=== PATIENT | female | born 1950 | race Caucasian/White ===

== ENCOUNTER 2018-06-18 06:55 | Outpatient (CLI) | payer BC, SELFPAY ==
--- NOTE | 2018-06-18 11:45 | DI.RAD_ITS ---
SYMPTOMS/DIAGNOSIS: BACK PAIN, DORSALGIA, M54.9 LUMBAR SPINE: AP, lateral and bilateral oblique views were obtained. There are no priors for comparison. There is a compression deformity of the superior endplate of L3. There is loss of approximately 15% of the height of the vertebral body. There is a mild compression deformity of the superior endplate of L4 with minimal loss of height of the vertebral body noted. There are five lumbar-type vertebral bodies. No spondylolysis or spondylolisthesis is seen. There is disc space narrowing at L3-4 and L4-L5. Endplate osteophytes are seen from L2-3 through L4-L5. There are degenerative changes of the facet seen in the lower lumbar spine. Surgical clips are seen in the right upper quadrant of the abdomen. IMPRESSION: 1. Superior endplate deformities of L3 and L4. They are indeterminate in age. 2. Moderate degenerative changes in the lumbar spine.
[2018-06-18 12:44] LABS: Bilirubin Negative (Negative); Blood Negative (Negative); Clarity Clear; Glucose Negative (Negative); Ketones Negative (Negative); Leukocyte Esterase Negative (Negative); Nitrite Negative (Negative)
[2018-06-18 12:49] LABS: HCT 41.8 % (36.0-46.0); HGB 15.2 g/dL (12.0-15.5); Mean Corp. HGB Concentration 36.4 g/dL (32.0-36.0); Mean Corpuscular Hemoglobin 33.6 pg (27.0-33.0); Mean Corpuscular Volume 92.3 fL (80-95); Mean Platelet Volume 11.2 fL (8.0-11.0); RBC 4.53 m/cumm (4.00-5.20); RBC Distribution Width 12.4 % (11.7-14.6); White Blood Cell Count 12.87 k/cumm (4.4-10.8)
[2018-06-18 13:38] LABS: ALT 52 U/L (12-78); AST 33 U/L (15-37); Albumin 4.4 g/dL (3.4-5.0); Alkaline Phosphatase 77 U/L (46-116); Anion Gap 8.9 mmol/L (3-11); BUN 18 mg/dL (7-18); C-Reactive Protein 0.92 mg/dL (0.0-0.3); CO2 28.1 mmol/L (21.0-32.0); Calcium 9.4 mg/dL (8.5-10.1); Chloride 102 mmol/L (98-107); Glucose 77 mg/dL (70-100); Potassium 4.2 mmol/L (3.5-5.1); Sodium 139 mmol/L (136-145); Total Protein 7.6 g/dL (6.4-8.2)
[2018-06-18 13:56] LABS: Platelet Count 162 x1000/uL (130-400)
[2018-06-18 14:01] LABS: Absolute Eosinophil Count 0.13 k/cumm (0.0-0.7); Absolute Lymphocyte Count 4.89 k/cumm (1.2-3.4); Absolute Monocyte Count 4.63 k/cumm (0.11-0.7); Absolute Neutrophil Count 3.22 k/cumm (1.2-6.7); Atypical Lymphocytes % 19
[2018-06-18 14:02] LABS: Howell-Jolly Bodies Present; Microcytosis 1+; Spherocytes 1+
[2018-06-18 14:03] LABS: Diff Comment Manual Differential
== END 2018-06-18 07:15 ==
PROVIDERS: PCP Family Medicine; Visit Provider Family Medicine
DX: Z00.00 Encounter for general adult medical examination without abnormal findings (principal); R39.11 Hesitancy of micturition; M54.5 Low back pain; M48.56XD Collapsed vertebra, not elsewhere classified, lumbar region, subsequent encounter for fracture with routine healing; M47.817 Spondylosis without myelopathy or radiculopathy, lumbosacral region
CPT/HCPCS: 36415; 80053; 72110; 81003; 85025; 86140

== ENCOUNTER 2018-07-01 01:48 | Outpatient (CLI) | payer BC, SELFPAY ==
--- NOTE | 2018-07-01 15:56 | DI.DEXA_ITS ---
SYMPTOM/DIAGNOSIS: COMPRESSION FX, SCREENING FOR OSTEOPOROSIS IN POSTMENOPAUSAL WOMAN, Z78.0 DEXA SCAN: The scanogram is unremarkable save for a small superior endplate compression fracture involving L 3. For the left hip, a T score of -0.7 and a Z score of 0.6 indicate osteopenia and an increased fracture risk. For the lumbar spine, a T score of 0.5 and a Z score of 2.3 are within the normal range. For the left forearm, a T score of - 1.3 and a Z score of 0.4 are within the normal range.
== END 2018-07-01 02:08 ==
PROVIDERS: PCP Family Medicine; Visit Provider Family Medicine
DX: M85.88 Other specified disorders of bone density and structure, other site (principal); Z78.0 Asymptomatic menopausal state
CPT/HCPCS: 77080

== ENCOUNTER 2018-07-07 00:58 | Outpatient (CLI) | payer BC, SELFPAY ==
--- NOTE | 2018-07-07 13:52 | DI.CT_ITS ---
SYMPTOMS/DIAGNOSIS: INCREASING LOW BACK PAIN AND HIP PAIN S/P FALL 5 WEEKS AGO, M54.5 CT SCAN OF THE LUMBAR SPINE: Multiple contiguous axial images of the lumbar spine were obtained. Sagittal and coronal reformatted images were evaluated on the Siemens workstation. There is a subacute compression fracture of the superior endplate of L2 with loss of less than 10% of the height of the vertebral body. There is a subacute fracture of the superior endplate of L3 with loss of approximately 15-20% of the height of the vertebral body noted. There is a compression fracture involving the superior endplate of L4 on the left. No significant retropulsion is seen to cause central spinal canal stenosis. There are endplate osteophytes at all levels of the lumbar spine with sparing of the L5-S1 disc space. There is mild narrowing of the L3-L4 disc space and marked narrowing of the L4-L5 disc space. Vacuum discs are seen at L3-L4 and L4-L5. Degenerative changes of the facets are seen in the lumbar spine, particularly from L3-4 through L5-S1. IMPRESSION: 1. Subacute fractures involving the superior endplates of L2, L3 and L4, as described above. 2. Moderate degenerative changes seen in the lumbar spine. CT SCAN OF THE PELVIS: Multiple contiguous axial images of the pelvis, sacrum and coccyx were obtained. Sagittal and coronal reformatted images were evaluated on the Siemens workstation. No fracture or dislocation is seen. The sacroiliac joints appear intact, as does the symphysis pubis. Degenerative changes are seen in the lower lumbar spine. The soft tissues show no acute abnormality. IMPRESSION: No acute fracture or subluxation.
== END 2018-07-07 01:18 ==
PROVIDERS: PCP Family Medicine; Visit Provider Family Medicine
DX: M54.5 Low back pain (principal); M25.559 Pain in unspecified hip; M47.816 Spondylosis without myelopathy or radiculopathy, lumbar region; M48.56XD Collapsed vertebra, not elsewhere classified, lumbar region, subsequent encounter for fracture with routine healing; M48.061 Spinal stenosis, lumbar region without neurogenic claudication
CPT/HCPCS: 72131; 72192

== ENCOUNTER 2018-10-23 11:10 | Outpatient (CLI) | payer BC, SELFPAY ==
[2018-10-23 14:25] LABS: HCT 39.4 % (36.0-46.0); HGB 14.2 g/dL (12.0-15.5); Mean Corpuscular Hemoglobin 33.8 pg (27.0-33.0); Mean Corpuscular Volume 93.8 fL (80-95); Mean Platelet Volume 11.2 fL (8.0-11.0); Platelet Count 169 x1000/uL (130-400); RBC Distribution Width 12.2 % (11.7-14.6); White Blood Cell Count 5.88 k/cumm (4.4-10.8)
[2018-10-23 15:21] LABS: Absolute Eosinophil Count 0.12 k/cumm (0.0-0.7); Absolute Lymphocyte Count 3.29 k/cumm (1.2-3.4); Absolute Monocyte Count 1.18 k/cumm (0.11-0.7); Absolute Neutrophil Count 1.29 k/cumm (1.2-6.7); Atypical Lymphocytes % 27; Diff Comment Manual Differential; Nucleated RBC 1 /100WBC
[2018-10-23 15:23] LABS: Howell-Jolly Bodies Present
[2018-10-23 15:33] LABS: ALT 60 U/L (12-78); AST 38 U/L (15-37); Albumin 4.3 g/dL (3.4-5.0); Alkaline Phosphatase 47 U/L (46-116); Anion Gap 8.8 mmol/L (3-11); BUN 17 mg/dL (7-18); Bilirubin, Total 1.5 mg/dL (0.2-1.0); CO2 26.2 mmol/L (21.0-32.0); CREATININE 0.66 mg/dL (0.55-1.02); Calcium 9.5 mg/dL (8.5-10.1); Chloride 105 mmol/L (98-107); Glucose 92 mg/dL (70-100); Potassium 4.2 mmol/L (3.5-5.1); Sodium 140 mmol/L (136-145); Total Protein 7.2 g/dL (6.4-8.2)
[2018-10-24 13:25] LABS: Total Protein 6.8 g/dl (6.3-8.2)
== END 2018-10-23 11:30 ==
PROVIDERS: PCP Family Medicine; Visit Provider Family Medicine
DX: M54.5 Low back pain (principal)
CPT/HCPCS: 36415; 80053; 84165; 85025

== ENCOUNTER 2019-12-10 02:21 | Outpatient (CLI) | payer MEDICARE, SELFPAY ==
--- NOTE | 2019-12-10 11:55 | DI.MAMMO_ITS ---
EXAM: MAMMO SCREENING CLINICAL HISTORY: screening,z12.39 TECHNIQUE: Mammograms were interpreted according to the usual protocol including computer analysis w [employer] CAD system, tomosynthesis and C-view imaging. COMPARISON: 2010 through 2017 FINDINGS: The breasts are composed of mainly fatty density , Breast Density category A. No suspicious masses or suspicious microcalcifications are seen. No skin thickening or abnormal axillary lymph nodes are seen. There has been no significant change from prior exams. IMPRESSION: BI-RADS Category 1, Negative mammogram Yearly screening mammography is recommended. Breast Density - Category A, fatty density. A negative radiographic report should not delay biopsy if a dominant or clinically suspicious mass is present. Up to ten percent of cancers are not identified on mammography. A negative report may reinforce clinical impression. Adenosis and dense breasts may obscure an underlying neoplasm. False positive reports average 6 to 10%. Patient will receive a letter notifying them of these results.
== END 2019-12-10 02:41 ==
PROVIDERS: PCP Family Medicine; Visit Provider Family Medicine
DX: Z12.31 Encounter for screening mammogram for malignant neoplasm of breast (principal)
CPT/HCPCS: 77063; 77067

== ENCOUNTER → 2019-12-31 09:05 | Outpatient (BNVA) | payer MEDICARE, SELFPAY | PROVIDERS: PCP Family Medicine; Referring Provider Family Medicine; Visit Provider Physical Therapy Assistant | DX: Z12.11 Encounter for screening for malignant neoplasm of colon (principal) ==

== ENCOUNTER 2020-01-25 07:12 | Day surgery (SDC) | payer MEDICARE, SELFPAY ==
--- NOTE | 2020-01-25 06:51 | COLE_ITS ---
Date of service: 01/25/20 Time of Service: 08:14 Colonoscopy Report Date of procedure: 01/25/20 Pre-op diagnosis general: colon cancer Screening Post-op diagnosis procedure note: other (diverticulosis and polyps) Procedure: Colonoscopy with polypectomy Surgeon: Gaby Dillard Anesthesia proc note operative: other (General/ASA 2/Roger Finley CRNA) Estimated blood loss (mL): 3 Pathology: other (Hepatic flexure polyp and sigmoid polyp) Complications: None Disposition: same day Indications: The patient is here for Colonoscopy pre-op. Her last screening was in 2009 and was unremarkable. She has no family history of colon cancer. She has not had any bowel habit changes. -Discussed colonoscopy bowel prep as well as the procedure. Discussed possible complications of the procedure to include bleeding, pain, perforation, missed small lesion/polyp, sore throat, aspiration and adverse reaction to the medications. Questions were answered to patient?s satisfaction. No guarantees were implied or given. Prep: Miralax/Dulcolax Procedure Start Time: 08:14 Procedure End Time: 08:35 Retraction Time: 14 minutes Findings: one sessile polyp and one pedunculated polyp. Pandiverticulosis Procedure Description: After informed consent was obtained the patient was taken to the procedure room and placed in a left decubitous position. Monitors were applied and a time out was done. The patients name, date of , procedure, allergies to medications and metal in their body was reviewed. The patient was then sedated. Once sedated and comfortable a rectal exam was done. External exam was normal. Internal exam revealed a normal sphincter tone and no palpable masses. The scope was then introduced and retro-flexed. No internal hemorrhoids, masses or polyps were identified on retroflexion. The scope was then advanced to the cecum without difficulty. The ileocecal valve and appendiceal orifice were identified. The prep was good. The scope was then slowly retracted over 14 minutes back into the rectum. Polyps were removed with forceps at the Hepatic Flexure and with a snare in the sigmoid colon. There was moderate case- diverticulosis noted as well. The scope was removed and the patient was woken up and taken back to Same day surgery in stable condition. The patient tolerated the procedure well and there were no immediate complications. Follow up: The patient should follow up in 5 years unless they develop changes in bowel habits or other new gastrointestinal complaints.
--- NOTE | 2020-01-25 06:52 | W.PM.DSUDISC ---
Discharge Plan Disposition Patient Disposition: HOME Condition: Good Discharge Details Reason For Visit: Colonoscopy Attending Provider: Gaby Dillard Primary Care Provider: Florencia Worthington Home Meds and New Rx's Prescriptions: Continued trazodone 50 mg tablet 50 mg PO QHS PRNRF: 0 meningococcal B vaccine,4-comp 50-50-50-25 mcg/0.5 mL syringe 0.5 ml IM ONCE Qty: 0.5 RF: 0 timolol maleate 0.25 % drops 1 drp OP DAILY RF: 0 ibuprofen [Motrin IB] 200 MG tablet 200 - 600 mg PO DAILY PRNRF: 0 latanoprost [Xalatan] 2.5 ML drops 1 drp Ophthalmic HS RF: 0 acetaminophen [Acetaminophen Extra Strength] 500 MG tablet 1,000 mg PO TID PRN PRNQty: 120 RF: 0 melatonin 5 mg Tablet, Sublingual 5 mg SUBLINGUAL HS PRNRF: 0 Discontinued polyethylene glycol 3350 17 gram/dose powder 238 g PO ONCE Qty: 238 RF: 0 bisacodyl [Dulcolax (bisacodyl)] 5 mg tablet,delayed release (DR/EC) 5 mg PO ONCE Qty: 4 RF: 0 Discharge Instructions Instructions: Diverticulosis (DC), Colorectal Polyps (DC) Additional Instructions: Findings: 2 polyps diverticulosis Follow up: 5 years more then likely Please call if you develop: fevers >101.5 Nausea or Vomiting Abdominal pain that is not transient DAY SURGERY UNIT POST ENDOSCOPY INSTRUCTIONS 1. Because there will be medication in your system for the next 24 hours, you may feel a little sleepy. Your coordination will be affected. Therefore: a. Do not drive or operate dangerous equipment for 24 hours. b. Do not drink alcohol beverages for 24 hours (not even beer). c. Plan to go home and rest for the day. 2. Generally there are no restrictions on your activity after a day or so has gone by, but you may feel a bit fatigued for a few days. 3 After you arrive home you may have a light meal and return to a normal diet as you can tolerate it without feeling sick to your stomach. 4. After surgery, you may feel pain or discomfort. This should be only transient, but if it persists please contact your doctor. 5. If there are any questions regarding the findings of your procedure, please feel free to contact your doctor. 6. If you are unable to contact your doctor with a problem, contact the hospital at [phone]. 7. Continue all your regular medications unless directed otherwise. I understand the above instructions and have no questions. Signature of Patient or Responsible Adult Escort Date/Time Name of Responsible Adult Escort Signature of Nurse Date/Time Activity:: Activity as Tolerated Diet:: High Fiber diet Discharge Orders Discharge Orders: Discharge Order (Routine); Ordered 01/25/20 Ordered By: Gaby Dillard
[2020-01-25 07:28] VITALS: BP 124/82; PULSE 62; RESP 16; TEMP 36.5; O2SAT 98
[2020-01-25] MEDS: Lactated Ringers 1,000 ML 80 ML IV (07:54)
--- NOTE | 2020-01-25 08:25 | BOWEL_PTH ---
PATIENT: Jenn Urena LOC: [facility] U#:[id number] AGE/SX: 69/F ROOM: RE01/25/[address]: Gaby Dillard MD : [id number] BED: DIS: 01/25/2020 SPEC #: [id number] RECD: 01/25/20 11:43 STATUS: KIRAN REQ #: [id number] MIKAL: 01/25/20 08:[address]: Gaby Dillard DEPT: Surgical Specimen RECD BY: Mikaela Denise ENTERED: 01/25/20 11:43 SP TYPE: Bowel OTHR DR: Florencia Worthington MD, DC Tissues: 1 - BIOPSY BOWEL 2 - BIOPSY BOWEL Procedures: GROSS AND MICRO LEVEL 4 Comments: [id number]
[2020-01-25 09:10] VITALS: BP 113/61; PULSE 52; RESP 16; TEMP 36.2; O2SAT 95
== END 2020-01-25 09:35 | disposition home or self-care (01) ==
PROVIDERS: PCP Family Medicine; Visit Provider Surgery
PROC: 0DJD8ZZ Inspection of Lower Intestinal Tract, Via Natural or Artificial Opening Endoscopic (ICD-10-PCS; CPT 45378; principal; 2020-01-25 08:15)
DX: Z12.11 Encounter for screening for malignant neoplasm of colon (principal); K63.5 Polyp of colon; K57.30 Diverticulosis of large intestine without perforation or abscess without bleeding; D58.0 Hereditary spherocytosis
CPT/HCPCS: 45385; 45380; 88305

== ENCOUNTER 2020-02-08 11:03 | Outpatient (CLI) | payer MEDICARE, SELFPAY ==
[2020-02-12 17:36] LABS: Patient Race White; SARS-CoV-2 RNA Undetected (Undetected); SARS-CoV-2 Specimen Source Nasal
== END 2020-02-08 11:23 ==
PROVIDERS: PCP Family Medicine; Visit Provider Family Medicine
DX: Z11.59 Encounter for screening for other viral diseases (principal)
CPT/HCPCS: U0003

== ENCOUNTER 2021-03-13 18:58 | Outpatient (REF) | payer MEDICARE, SELFPAY | END 2021-03-13 18:59 | disposition home or self-care (01) | LOC: LBN 18:58 | PROVIDERS: PCP Family Medicine; Visit Provider Family Medicine | DX: R31.29 Other microscopic hematuria (principal) | CPT/HCPCS: 87077; 87086; 87186 ==

== ENCOUNTER → 2021-08-31 01:14 | Outpatient (CLI) | payer MEDICARE, SELFPAY ==
--- NOTE | 2021-08-31 08:15 | DI.MAMMO_ITS ---
Exam(s) MAMMO SCREENING EXAM: MAMMO SCREENING CLINICAL HISTORY: screening,z12.39. TECHNIQUE: Bilateral full field digital CC and MLO mammographic images were obtained with 3D tomosyn thesis and utilizing computer aided detection (CAD). COMPARISON: Prior mammograms were reviewed, the most recent being December 2019. FINDINGS: There has been no significant change appearance and distribution of fibroglandular tissue. Small benign-appearing nodule the upper quadrant right breast is unchanged least 2011. No new spiculated masses in either breast. In right breast there is a faint microcalcification seen which is located 7 cm in from the nipple on the CC view and will require spot Mag 2D view. Slightly more prominent than previous. There is no significant architectural distortion nor skin thickening-retraction. IMPRESSION: 1. No radiographic evidence of malignancy in left breast. 2. Right breast microcalcification group which requires 2 D spot Mag CC view and straight lateral the spot Mag 2D view. BI-RADS Category 0 - Assessment Incomplete: Need additional imaging evaluation Breast Density - Category B - Scattered areas of fibroglandular density Breast density Category C or D implies that the patient has dense breast tissue. Dense breast tissue can make it harder to find cancer on a mammogram. Dense breast tissue is also associated with an incr eased risk of breast cancer. This information about the result of the mammogram report was provided to the patient to raise their awareness. Use this report when you speak with the patient about their risks for breast cancer, which includes their family history. At that time, you may recommend additional screening tests (Ultrasoun d or MRI) as these tests may add significant information. A negative radiographic report should not delay biopsy if a dominant or clinically suspicious mass is present. Up to ten percent of cancers are not identified on mammography. A negative report may reinforce clinical impression. Adenosis and dense breasts may obscure an underlying neoplasm. False positive reports average 6 to 10%. Patient will receive a letter notifying them of these results.
== END ==
PROVIDERS: PCP Family Medicine; Visit Provider Family Medicine
DX: Z12.31 Encounter for screening mammogram for malignant neoplasm of breast (principal); R92.8 Other abnormal and inconclusive findings on diagnostic imaging of breast
CPT/HCPCS: 77063; 77067

== ENCOUNTER → 2021-09-25 02:01 | Outpatient (CLI) | payer MEDICARE, SELFPAY ==
--- NOTE | 2021-09-25 | DI.MAMMO_ITS ---
Exam(s) MG MAMMO SCREEN CALL BACK UNI US BREAST RT COMPLETE EXAM: MG MAMMO SCREEN CALL BACK UNI -RIGHT AND COMPLETE RIGHT BREAST ULTRASOUND CLINICAL HISTORY: F/U MAMMO, RT BREAST MICROCALCIFICATIONS. TECHNIQUE: Unilateral spot mammographic images obtained with 2Dand utilizing computer aided detectio n (CAD). . Complete RIGHT breast Ultrasound was also performed, including all 4 quadrants, the retroareolar danyelle on, and the ipsilateral axilla. COMPARISON: Prior mammograms were reviewed. This additional imaging was performed due to findings described on the recent screening mammogram of 08/31/2021. FINDINGS: Additional mammographic views performed todayrevealed these microcalcifications to be within confined area, possibly a nodule. Proceed with ultrasound. Ultrasound performed today reveals a solitary finding at the 12 o'clock position which most probably corresponds to the finding on the mammogram. This is a 5 x 3 millimeter slightly lobulated nodule wh ich appears to contain some calcifications therein.. There are no other focal findings in all 4 quad rants nor in the retroareolar region. Scanning of the ipsilateral axilla is negative for significant adenopathy. IMPRESSION: Microcalcification group/nodule in the right breast, as described above. Stereotactic biopsy is zenon mmended Findings are recommendations were discussed by myself with the patient and her sister today. The patient was informed of these findings and recommendations prior to leaving the department today. BI-RADS Category 4 - Suspicious Abnormality: Biopsy should be considered Breast Density - Category B - Scattered areas of fibroglandular density Breast density Category C or D implies that the patient has dense breast tissue. Dense breast tissue can make it harder to find cancer on a mammogram. Dense breast tissue is also associated with an incr eased risk of breast cancer. This information about the result of the mammogram report was provided to the patient to raise their awareness. Use this report when you speak with the patient about their risks for breast cancer, which includes their family history. At that time, you may recommend additional screening tests (Ultrasoun d or MRI) as these tests may add significant information. A negative radiographic report should not delay biopsy if a dominant or clinically suspicious mass is present. Up to ten percent of cancers are not identified on mammography. A negative report may reinforce clinical impression. Adenosis and dense breasts may obscure an underlying neoplasm. False positive reports average 6 to 10%. Patient will receive a letter notifying them of these results.
== END ==
PROVIDERS: PCP Family Medicine; Visit Provider Family Medicine
DX: Z12.31 Encounter for screening mammogram for malignant neoplasm of breast (principal); R92.0 Mammographic microcalcification found on diagnostic imaging of breast; N63.15 Unspecified lump in the right breast, overlapping quadrants
CPT/HCPCS: 76642; 77063; 77067

== ENCOUNTER 2022-04-25 14:53 | Outpatient (CLI) | payer MEDICARE, SELFPAY ==
--- NOTE | 2022-04-25 13:30 | DI.RAD_ITS ---
Exam(s) XR RIBS BI INCLUDE CHEST EXAM: XR RIBS BI INCLUDE CHEST CLINICAL HISTORY: increased pain with breathing and moving, R07.89 TECHNIQUE: 2D digital imaging was performed. COMPARISON: CR XR STERNUM from 04/25/2022 FINDINGS: MEDIASTINUM: Mildly ectatic aorta. HEART: Normal. PULMONARY VASCULATURE: Normal. LUNGS: Mild basilar linear scarring. PLEURAL SPACE: No pleural effusion or pneumothorax. BONE:Mildly displaced fracture of the mid sternum seen on lateral view. Surgical clips to the left s juan [place] of the spine. Mid thoracic vertebral bodies are not well defined on the lateral view. BILATERAL RIBS: Prior partial resection of the left 6th rib. Lower ribs not well penetrated. No acu te rib fractures are identified. The shoulders are unremarkable. OTHER FINDINGS:Normal. IMPRESSION: 1. No acute pulmonary findings. 2. Sternal fracture. No acute rib fracture visible. Prior surgical resection of 6th rib. DATA REPOSITORY: RADIATION DOSE DELIVERED:
--- NOTE | 2022-04-25 13:30 | DI.RAD_ITS ---
Exam(s) XR STERNUM EXAM: XR STERNUM CLINICAL HISTORY: increased pain with breathing and moving, R07.89. TECHNIQUE: 2D digital imaging was performed. COMPARISON: CR XR RIBS BI INCLUDE CHEST from 04/25/2022 FINDINGS: BONES: Mildly displaced fracture mid sternum. No bony destructive lesion is visible. JOINTS: No dislocation present. SOFT TISSUE: Normal. IMPRESSION: Mid sternum fracture DATA REPOSITORY: RADIATION DOSE DELIVERED:
== END 2022-04-25 15:13 ==
LOC: DI 14:53
PROVIDERS: PCP Family Medicine; Visit Provider Nurse Practitioner Family
DX: R07.89 Other chest pain (principal); R07.1 Chest pain on breathing; S22.22XA Fracture of body of sternum, initial encounter for closed fracture; J98.4 Other disorders of lung
CPT/HCPCS: 71046; 71110; 71120

== ENCOUNTER 2022-05-01 17:46 | Outpatient (CLI) | payer MEDICARE, SELFPAY ==
--- NOTE | 2022-05-01 16:00 | DI.RAD_ITS ---
Exam(s) XR LUMBAR SPINE COMPLETE EXAM: XR LUMBAR SPINE COMPLETE CLINICAL HISTORY: evaluate pathology LOW BACK PAIN M54.50 LUMBAR BACK PAIN. TECHNIQUE: 2D digital imaging was performed. Five views. COMPARISON: CR XR lumbar spine complete from 06/18/2018 DX XR DEXA BONE DENSITY W/WO YOLI from 07/01/2018 FINDINGS: There is mild compression of the inferior endplate of L1-2 and minimal compression of the inferior en dplate of T12-L1, new since prior. There are mild compression fractures of the superior endplates of L2 and L3, which appears stable. there are severe degenerative disc changes at L3-4 and L4-5. Face t degenerative changes are greatest at L4-5. No spondylolysis or spondylolisthesis or significant sc oliosis. IMPRESSION: Mild compression fractures,. Degenerative disc changes greatest at L3-4 and L4-5.. DATA REPOSITORY: RADIATION DOSE DELIVERED:
--- NOTE | 2022-05-01 17:31 | DI.VRAD_ITS ---
PROCEDURE INFORMATION: Exam: XR Lumbosacral Spine Exam date and time: 05/01/2022 4:58 PM Age: 71 years old Clinical indication: Other: Lbp TECHNIQUE: Imaging protocol: Radiologic exam of the lumbosacral spine. Views: 4 or 5 views. COMPARISON: CT lumbar spine wo 07/07/2018 2:02 PM and conventional radiograph 06/18/2018 FINDINGS: Bones/joints: The bones are demineralized. Mild ballooning of the lower thoracic and upper lumbar interspaces. This is new at T12-L1 and progressed at L1-L2 and L2-L3. Narrowed lower lumbar interspaces with the exception of L5-S1 with endplate osteophyte formation. Degenerative arthritis in the lumbar facets. Soft tissues: Unremarkable. IMPRESSION: Progression of ballooning of the interspaces T12-L1 through L2-L3 consistent with progressive compression deformities compared with previous CT 07/07/2018 Dictated and Authenticated by: Lindsey Weber MD. Ordering:MITUL Reyes MD
== END 2022-05-01 18:06 ==
LOC: DI 17:47
PROVIDERS: PCP Family Medicine; Visit Provider Nurse Practitioner Family
DX: M54.59 Other low back pain (principal); M51.37 Other intervertebral disc degeneration, lumbosacral region; M48.56XA Collapsed vertebra, not elsewhere classified, lumbar region, initial encounter for fracture; M47.816 Spondylosis without myelopathy or radiculopathy, lumbar region
CPT/HCPCS: 72110

== ENCOUNTER 2022-05-02 12:13 | Outpatient (CLI) | payer MEDICARE, SELFPAY ==
--- NOTE | 2022-05-02 12:42 | DI.RAD_ITS ---
Exam(s) XR THORACIC SPINE COMPLETE EXAM: XR THORACIC SPINE COMPLETE CLINICAL HISTORY: thoracic back pain, m54.6, eval pathology. TECHNIQUE: 2D digital imaging was performed. Three views. COMPARISON: DX XR DEXA BONE DENSITY W/WO YOLI from 07/01/2018 CR XR STERNUM from 04/25/2022 CR XR RIBS BI INCLUDE CHEST from 04/25/2022 CR,XR XR LUMBAR SPINE COMPLETE from 05/01/2022 FINDINGS: BONES: There are surgical clips in the mid thoracic region. Stable kyphosis and apparent old T8 comp ression fracture. The appearance appears unchanged from recent chest x-ray. No more remote exams ar e available. DISKS: Degenerative changes with narrowing of the anterior disc spaces and endplate osteophytes in t he midthoracic levels. SOFT TISSUE: Visualized lungs are clear. IMPRESSION: Moderate compression fracture of T8. There postsurgical changes in this region the findings are like ly old. DATA REPOSITORY: RADIATION DOSE DELIVERED:
== END 2022-05-02 12:33 ==
LOC: DI 12:14
PROVIDERS: PCP Family Medicine; Visit Provider Nurse Practitioner Family
DX: M48.54XD Collapsed vertebra, not elsewhere classified, thoracic region, subsequent encounter for fracture with routine healing; M51.34 Other intervertebral disc degeneration, thoracic region
CPT/HCPCS: 72072

== ENCOUNTER 2022-05-18 00:30 | Outpatient (CLI) | payer MEDICARE, SELFPAY ==
--- NOTE | 2022-05-18 07:45 | DI.CT_ITS ---
Exam(s) CT LUMBAR SPINE SI JOINTS WO EXAM: CT LUMBAR SPINE SI JOINTS WO CLINICAL HISTORY: severe pain in lumbar spine,COMP FX WITH DELAYED HEALING,S32.000G. TECHNIQUE: Imaging Protocol: Axial computed tomography images with coronal and sagittal reformatted images were created and reviewed CR,XR XR LUMBAR SPINE COMPLETE from 05/01/2022 CR XR DEXA BONE DENSITY W/WO YOLI from 05/18/2022 FINDINGS: Bones: The last intervertebral disc space is designated the L5/S1 level for the numbering purpose of this examination. Bones appear osteopenic. Mild compression fracture of the inferior endplate of T12, new from prior CT. Mild compression fracture of the inferior endplate of L1, new since prior CT. Mild compression deformity of the superior aspect of L2, worsening when compared with prior Mild compression deformity of the superior and inferior aspects of L3, no significant change. Central concavity at the superior endplate of L4, no significant change. L5 and S1 as well as remaining sacrum are unremarkable. Degenerative disc changes noted throughout. The visualized SI joints and sacrum are will maintained. Soft Tissues: The paraspinal soft tissues are unremarkable. A large quantity of stool is noted throu ghout the colon. IMPRESSION: Multilevel mild compression deformities as described above. RADIATION DOSE DELIVERED: 604.07mGy.cm Total DLP DATA REPOSITORY: All CT scans at this facility are submitted to the National Radiology Data Registry (NRDR) Dose Index Registry (DIR) with the [employer] (A[employer]). RADIATION OPTIMIZATION: All CT scans at this facility use at least one of these dose optimization te chniques: automated exposure control; mA and/or kV adjustment per patient size (includes targeted exa ms where dose is matched to clinical indication); or iterative reconstruction.
--- NOTE | 2022-05-18 10:25 | DI.DEXA_ITS ---
Exam(s) XR DEXA BONE DENSITY W/WO YOLI EXAM: XR DEXA BONE DENSITY W/WO YOLI CLINICAL HISTORY: COMP FX, SCREENING FOR OSTEOPOROSIS IN POSTMENOPAUSAL WOMAN,Z78.0 TECHNIQUE: [employer] C densitometer analysis of left hip, lumbar spine and left forearm. COMPARISON: DX XR DEXA BONE DENSITY W/WO YOLI from 07/01/2018 CR,XR XR LUMBAR SPINE COMPLETE from 05/01/2022 CR XR THORACIC SPINE COMPLETE from 05/02/2022 DEXA scan 2006 FINDINGS: Lateral view of the thoracic and lumbar spine increased thoracic kyphosis and midthoracic compression fractures. Mild compression fractures are also seen at T12, L1 and L2. Bone mineral density measurements of the lumbar spine were not performed due to compression fractures . Bone mineral density measurements of the left hip correspond to a total T-score of -0.8. The femor al neck T-score is -1.7, in the osteopenic range. This represents an insignificant decrease of 1.7 percent compared with 2019 but a 17.1 percent decrease compared with 2005. The left forearm bone mineral density measurements correspond to a T-score of the distal 3rd of -1.1 , in the osteopenic range.. This represents a 5.1 percent decrease from 2019. The forearm was not a nalyzed in 2006.. IMPRESSION: Thoracic and lumbar compression fractures. Osteopenia of the left hip and left forearm.
== END 2022-05-18 00:50 ==
LOC: DI 00:30
PROVIDERS: PCP Family Medicine; Visit Provider Family Medicine
DX: S32.010A Wedge compression fracture of first lumbar vertebra, initial encounter for closed fracture (principal); S22.080A Wedge compression fracture of T11-T12 vertebra, initial encounter for closed fracture; Z78.0 Asymptomatic menopausal state; Z13.820 Encounter for screening for osteoporosis; M85.89 Other specified disorders of bone density and structure, multiple sites; S32.021G Stable burst fracture of second lumbar vertebra, subsequent encounter for fracture with delayed healing
CPT/HCPCS: 77080; 72131

== ENCOUNTER 2022-05-18 00:57 | Outpatient (CLI) | payer MEDICARE, SELFPAY ==
[2022-05-18 10:51] LABS: HCT 40.9 % (36.0-46.0); HGB 14.7 g/dL (11.2-15.7); MCH 32.7 pg (27.0-33.0); MCHC 35.9 % (32.0-36.0); MCV 91 fL (80-95); MPV 11.5 fL (8.0-11.0); Platelet Count 292 10^3/uL (130-400); RDW 12.6 % (11.7-14.6); RDW-SD 41.4 fL; WBC 9.05 10^3/uL (4.4-10.8)
[2022-05-18 11:08] LABS: Absolute Basophil Count 0.09 10^3/uL (0.0-0.2); Absolute Eosinophil Count 0.18 10^3/uL (0.0-0.7); Absolute Lymphocyte Count 5.07 10^3/uL (1.2-3.4); Absolute Monocyte Count 1.72 10^3/uL (0.1-0.8); Absolute Neutrophil Count 1.99 10^3/uL (1.2-6.7); Atypical Lymphocytes % 35
[2022-05-18 11:09] LABS: Diff Comment Manual Differential; RBC Morphology Normal
[2022-05-18 11:25] LABS: ALT 49 U/L (14-59); AST 38 U/L (15-37); Albumin 4.2 g/dL (3.4-5.0); Alkaline Phosphatase 78 U/L (46-116); Anion Gap 7.7 mmol/L (3-11); BUN 19 mg/dL (7-18); Bilirubin, Total 1.6 mg/dL (0.2-1.0); CO2 26.3 mmol/L (21.0-32.0); CREATININE 0.7 mg/dL (0.55-1.02); Calcium 9.3 mg/dL (8.5-10.1); Chloride 103 mmol/L (98-107); Estimated GFR 93.56 (mL/min/1.73m2); Glucose 96 mg/dL (74-106); Potassium 4.7 mmol/L (3.5-5.1); Sodium 137 mmol/L (136-145); Total Protein 7.4 g/dL (6.4-8.2)
[2022-05-18 11:26] LABS: C-Reactive Protein < 0.05 mg/dL (0.0-0.3)
[2022-05-18 11:47] LABS: Bilirubin Small (Negative); Blood Negative (Negative); Clarity Clear (Clear); Glucose Negative (Negative); Ketones Trace mg/dL (Negative); Leukocyte Esterase Negative (Negative); Nitrite Negative (Negative); Specific Gravity 1.025 (1.005-1.025); pH 5.5 (5-8)
[2022-05-21 13:09] LABS: Albumin 60.7 % (55.8-66.1); Albumin g/dL 4.4 g/dL (3.6-5.2); Total Protein 7.3 g/dL (6.3-8.2)
== END 2022-05-18 00:58 | disposition home or self-care (01) ==
LOC: LBO 00:57
PROVIDERS: PCP Family Medicine; Visit Provider Family Medicine
DX: M54.50 Low back pain, unspecified (principal); R39.89 Other symptoms and signs involving the genitourinary system; G47.00 Insomnia, unspecified
CPT/HCPCS: 36415; 80053; 81003; 84165; 85025; 86140

== ENCOUNTER 2022-09-03 01:00 | Outpatient (CLI) | payer MEDICARE, SELFPAY ==
--- NOTE | 2022-09-03 06:30 | DI.MAMMO_ITS ---
Exam(s) MAMMO SCREENING EXAM: MAMMO SCREENING CLINICAL HISTORY: screening,z12.39 TECHNIQUE: Bilateral full field digital CC and MLO mammographic images were obtained with 3D tomosyn thesis and utilizing computer aided detection (CAD). COMPARISON: Available for comparison. FINDINGS: Masses/Architectural Distortion: None seen. Microcalcifications: No suspicious pleomorphic-type are seen. The calcifications in both breasts appe ar stable. Skin Thickening/Nipple Retraction: None. IMPRESSION: 1. No significant interval change with no specific features of malignancy noted. 2. Unless there is more urgent need, screening mammography is recommended, as per [employer] guidelines. BI-RADS Category 2 - Benign Findings Breast Density - Category B - Scattered areas of fibroglandular density Breast density category C or D implies that the patient has dense breast tissue. Dense breast tissue is very common and is not abnormal but dense breast tissue can make it harder to find cancer on a ma mmogram. Also, dense breast tissue may increase their breast cancer risk. This information about the result of the mammogram report was provided to the patient to raise their awareness. Use this report when you speak with the patient about their risks for breast cancer, which includes their family hist ory. At that time, you may recommend for more screening tests (Ultrasound or MRI) as they might be us eful based on their risk. A negative radiographic report should not delay biopsy if a dominant or clinically suspicious mass is present. Up to ten percent of cancers are not identified on mammography. A negative report may reinforce clinical impression. Adenosis and dense breasts may obscure an underlying neoplasm. False positive reports average 6 to 10%. Patient will receive a letter notifying them of these results.
== END 2022-09-03 01:20 ==
LOC: DI 01:01
PROVIDERS: PCP Family Medicine; Visit Provider Family Medicine
DX: Z12.31 Encounter for screening mammogram for malignant neoplasm of breast (principal)
CPT/HCPCS: 77063; 77067

== ENCOUNTER 2023-03-09 19:34 | Inpatient (IN) | payer MEDICARE, SELFPAY ==
[2023-03-09] VITALS (18 sets, daily range): BP systolic 82–129; BP diastolic 46–104; PULSE 48–64; RESP 11–24; TEMP 35.3; O2SAT 97–100
--- NOTE | 2023-03-09 19:30 | DI.RAD_ITS ---
Exam(s) XR SHOULDER LT COMPLETE 2+V EXAM: XR SHOULDER LT COMPLETE 2+V CLINICAL HISTORY: shoulder injury. TECHNIQUE: 2D digital imaging was performed. Three views. COMPARISON: No exams were available for comparison FINDINGS: BONES: Comminuted fracture humeral head with mild displacement. Main fracture is transverse through the surgical neck. Multiple surrounding comminuted fragments. The fracture involves the greater tub erosity. No bony destructive lesion is seen. JOINTS: No dislocation present.Widening of glenohumeral joint space consistent with effusion. SOFT TISSUE: Normal. IMPRESSION: Comminuted fracture of the humeral head. DATA REPOSITORY: RADIATION DOSE DELIVERED:
--- NOTE | 2023-03-09 19:30 | DI.CT_ITS ---
Exam(s) CT HEAD CERVICAL SPINE WO EXAM: CT HEAD CERVICAL SPINE WO CLINICAL HISTORY: fall. TECHNIQUE: Imaging Protocol: Axial computed tomography images with coronal and sagittal reformatted images were created and reviewed CR XR STERNUM from 04/25/2022 CR XR THORACIC SPINE COMPLETE from 05/02/2022 FINDINGS: Head CT Ventricles and Extra axial spaces: Normal in size and morphology for the patient's age. Hemorrhage: None. Cerebral parenchyma: No evidence of mass or acute infarct. Midline shift: None. Brainstem/Cerebellum: Normal. Calvarium: Normal. Visualized Paranasal sinuses/Mastoids: Clear. Soft tissues: Unremarkable. Cervical Spine CT BONES: Vertebral body heights are maintained. Alignment is normal. There is no evidence of acute frac ture. Degenerative disc changes and facet degenerative changes are seen . SOFT TISSUES: No paraspinal hematoma. The airway appears intact. No pneumothorax is seen at the lung apices. IMPRESSION: Head CT: No acute abnormality. C-spine CT: Degenerative changes, no acute abnormality. RADIATION DOSE DELIVERED: Total DLP DATA REPOSITORY: All CT scans at this facility are submitted to the National Radiology Data Registry (NRDR) Dose Index Registry (DIR) with the [employer] (A[employer]). RADIATION OPTIMIZATION: All CT scans at this facility use at least one of these dose optimization te chniques: automated exposure control; mA and/or kV adjustment per patient size (includes targeted exa ms where dose is matched to clinical indication); or iterative reconstruction.
--- NOTE | 2023-03-09 19:30 | RT.EKG_ITS ---
APPROVED REPORT Exam: Resting ECG Reason for Exam: fall Patient Location: E HR:53 bpm ECG Measurements Heart Rate 53 AXIS PA 193 P 55 QRSd 99 QRS 39 QT 463 T 38 QTc 434 Conclusion Sinus bradycardia [address] segment changes
[2023-03-09] MEDS: Ondansetron 4 MG/2 ML VIAL IVP (19:46)
[2023-03-09 19:47] LABS: Abs Immature Grans 0.06 10^3/uL (0.0-0.06); Absolute Neutrophil Count 2.67 10^3/uL (1.2-6.7); HCT 38.7 % (36.0-46.0); HGB 13.6 g/dL (11.2-15.7); MCH 32.9 pg (27.0-33.0); MCHC 35.1 % (32.0-36.0); MCV 94 fL (80-95); MPV 11.9 fL (8.0-11.0); RBC 4.13 10^6/uL (3.93-5.22); RDW 12.4 % (11.7-14.6); RDW-SD 42.9 fL; WBC 10.67 10^3/uL (4.4-10.8)
--- NOTE | 2023-03-09 19:51 | W.ED.GENAD ---
Discharge Plan Disposition Patient Disposition: Admit to [facility] Discharge Details Chief Complaint: Orthopedic Clinical Impression: Bradycardia, Syncope, Closed fracture of left proximal humerus Primary Care Provider: Florencia Worthington ED Provider: Ryanne Aviles Home Meds and New Rx's Prescriptions: No Action loteprednol etabonate 0.5 % drops,suspension 2 drp ophthalmic (eye) DAILY PRN Patient Comments: SHAKE LIQUID AND INSTILL 1 DROP IN RIGHT EYE THREE TIMES DAILY timolol maleate 0.25 % drops 1 drp OP DAILY alendronate [Fosamax] 70 mg tablet 70 mg PO QWEEK Qty: 14 4RF ibuprofen [Motrin IB] 200 MG tablet 200 - 600 mg PO DAILY PRN latanoprost [Xalatan] 2.5 ML drops 1 drp Ophthalmic HS acetaminophen [Acetaminophen Extra Strength] 500 MG tablet 1,000 mg PO TID PRN PRNQty: 120 0RF melatonin 5 mg Tablet, Sublingual 5 mg SUBLINGUAL HS PRN vitamin B complex [B Complex-Vitamin B12] Tablet 1 tab PO DAILY calcium carbonate-vitamin D2 600 mg calcium- 200 unit tablet 1 tab PO DAILY Medical Decision Making Emergent evaluation of syncopal episode and left shoulder trauma. Initial differential includes syncope, vagal vasovagal episode, shoulder fracture, dislocation. Initial plan for telemetry monitoring, lab work and imaging to evaluate for traumatic etiologies. 2100 lab work reviewed CBC without leukocytosis or anemia. Renal function normal. Normal cardiac biomarkers. No elevation of CPK. X-ray of left shoulder indicates a proximal humerus fracture. She will be placed in a sling. She was noted to be bradycardic. This appears to be sinus bradycardia. I reviewed her medication list and do not note a beta-andrez however she is on timolol eyedrops. This could be contributing to her heart rate. Otherwise she is without chest pain. But given her bradycardia and syncopal episode, will admit for telemetry observation for high risk syncope. Medical Records Medical records reviewed: Yes I reviewed the patient's medical records. Lab Data Lab results reviewed: Yes I reviewed the patient's lab results. ECG Data Attestation: I personally reviewed and interpreted this ECG (s) as follows: Prior ECG tracings: not available for review Interpretation: Sinus bradycardia 53, no acute ST segment changes HPI General Date/Time Provider Initiated Documentation: 03/09/23 19:37. Limitations to Documentation: no limitations. Information obtained by: patient. HPI Narrative: 72-year-old female with past medical history of asplenia, vertebral fracture presents for evaluation after a fall and left shoulder pain. Reports that she was feeling a little bit lightheaded and so she stepped outside to get some fresh air. She then fell, she is not sure if she lost consciousness. She hit her left shoulder during the fall and had severe pain. She was unable to get herself up off the ground, but someone came out to help her. Was able to stand independently after getting helped off the ground. She reports that she had a cocktail and was smoking weed and thinks that that is why she started to feel little bit lightheaded. She reports severe pain localized to the left shoulder. Worse with any movement. No numbness or tingling. Related Data Home Medications Medication Instructions Recorded Confirmed ibuprofen 200 mg tablet (Motrin IB) 200 - 600 mg PO DAILY PRN 09/29/12 03/09/23 latanoprost 0.005 % eye drops 1 drp ophthalmic (eye) HS 11/28/16 03/09/23 (Xalatan) acetaminophen 500 mg tablet 1,000 mg (2 x 500 mg) PO TID PRN 12/11/16 03/09/23 (Acetaminophen Extra Strength) PRN #120 tabs timolol maleate 0.25 % eye drops 1 drp ophthalmic (eye) DAILY 06/25/19 03/09/23 melatonin 5 mg sublingual tablet 5 mg sublingual HS PRN 01/22/20 03/09/23 loteprednol etabonate 0.5 % eye 2 drp ophthalmic (eye) DAILY PRN 07/13/21 03/09/23 drops,suspension alendronate 70 mg tablet (Fosamax) 70 mg PO QWEEK #14 tabs 05/14/22 03/09/23 calcium carb-ergocalciferol (vit 1 tab PO DAILY 03/09/23 03/09/23 D2) 600 mg calcium-200 unit tablet vitamin B complex (B 1 tab PO DAILY 03/09/23 03/09/23 Complex-Vitamin B12 tablet) Previous Rx's Medication Instructions Recorded acetaminophen 500 mg tablet 1,000 mg (2 x 500 mg) PO TID PRN 12/11/16 (Acetaminophen Extra Strength) PRN #120 tabs alendronate 70 mg tablet (Fosamax) 70 mg PO QWEEK #14 tabs 05/14/22 Allergies Allergy/AdvReac Type Severity Reaction Status Date / Time No Known Allergies Allergy Verified 03/09/23 19:40 General Stated Complaint: Orthopedic KAY: 3 PFSH All Active Problems (Updated 03/09/23 @ 21:11 by Ryanne Aviles MD) Closed fracture of left proximal humerus (Acute) Syncope (Chronic) Bradycardia (Acute) COVID-19 (Acute) 01/09/23 Severe low back pain (Acute) Abnormal urine color (Acute) Compression fracture of lumbar vertebra with delayed healing (Acute) T7-T12 level spinal cord injury (Chronic) T8 BURST FX-CORD COMPRESSION. 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 Low back pain (Acute) Weight loss, intentional (Acute) Compression fracture (Acute) 2018 Encounter for screening colonoscopy (Acute) Tubular adenoma of colon (Acute) Low back pain (Acute) Jaw clicking (Acute) Urinary urgency (Acute) Abnormal mammogram (Acute) Sternal pain (Acute) after fall while skiing Post-menopause (Acute) Compression fracture of body of thoracic vertebra (Acute) Compression fracture of lumbar vertebra (Acute) Medical History Retinal detachment 04/01/02 NOS Annual physical exam (05/09/15) Full thickness rotator cuff tear (04/14/13) supraspinatus tear by MRI 04/14/13 [id number] Surgical History History of back surgery x 2 S/P cholecystectomy Hx of appendectomy S/P tonsillectomy H/O splenectomy at age 6 mos. D/T spercytosis S/P rotator cuff repair 08/30/13 Tonsillectomy Splenomegaly AT AGE 6MO D/T SPHERCYTOSIS Rotator Cuff Repair 08/2013 Cholecystectomy BACK SURGERY Appendectomy Family History Mother Hyperlipidemia Father , 79 Prostate cancer Lung cancer Brother Substance abuse Maternal Grandfather No problems noted. Paternal Grandfather Lung cancer Maternal Grandmother , 50 +/- Breast cancer Paternal Grandmother Breast cancer Sister No problems noted. Sister No problems noted. Brother No problems noted. Brother No problems noted. Son Hereditary spherocytosis Substance abuse Daughter Hereditary spherocytosis Depression Son Hereditary spherocytosis Social History Smoking/Tobacco Use Status: Former Tobacco Use tobacco type: cigarettes Quit Date: 04/01/21 Tobacco: How many years used: 10 Second Hand Exposure: No Smoking risk assessment performed?: Yes Alcohol Intake: current Alcohol Intake frequency: a few times a month Alcohol type: wine Drug use: Occasionally Substance use type: marijuana Details: Uses for pain Caregiver/Support person: No Household members: none Housing: house Communication Needs: Hard of Hearing and Corrective Lenses Do you need help understanding health information?: Never Pets and animals: No Sexually active: No Do you think of yourself as: straight/heterosexual Current gender identity: female What is your relationship status?: How often do you talk on the phone with friends or family?: three or more times per week How often do you get together with friends or relatives?: twice per week How often do you attend yazidism or anabaptism services?: decline to answer Do you belong to any clubs or organized social groups?: no Panel score (0-1 are the most socially isolated patients): 1 What type of physical activity do you participate in: walking, bicycling and yoga Duration: 15-30 minutes/day Frequency: 1-2 times per week Shayna/Presybeterian: None Special shayna needs: No Seatbelt use: always Drive intox or ride w/intox concrete mixer truck driver: No Do you feel safe at home: Yes Do you feel safe in your relationship?: Yes Exam Narrative Exam Narrative: Review of Systems: All systems reviewed & are unremarkable except as noted in HPI and below: CONSTITUTIONAL: Alert and oriented Well-developed, no acute distress HEENT: NCAT EYES: PERRL, no conjunctival injection CVS: Bradycardia, No murmurs or gallops. Peripheral pulses 2+ and equal in all extremities Brisk capillary refill in all extremities. No peripheral edema RESP: Unlabored respiratory effort, Clear to auscultation bilaterally No wheezes rales or rhonchi GI: Soft, Nontender, Nondistended, No organomegaly MSK: Left shoulder with anterior bruising no obvious dislocation, tenderness to palpation of the shoulder and the proximal humerus, 2+ radial pulse, neurovascularly intact Pelvis stable nontender SKIN: Warm, Dry. No rashes or lesions. NEURO: No focal neurologic deficits. production pattern maker II-XII grossly intact Sensation grossly intact Normal strength throughout PSYCH: Appropriate mood and affect Course Vital Signs Vital signs: Vital Signs Pulse 62 03/09/23 19:32 Respiratory Rate 18 03/09/23 19:32 Blood Pressure 129/93 H 03/09/23 19:32 Pulse Oximetry 97 03/09/23 19:32 Pulse 62 03/09/23 19:32 Respiratory Rate 18 03/09/23 19:32 Respiratory Effort Normal, Non-Labored 03/09/23 19:39 Blood Pressure 129/93 H 03/09/23 19:32 Pulse Oximetry 97 03/09/23 19:32 Oxygen Delivery Method Room Air 03/09/23 19:32 Oxygen Flow Rate 0 03/09/23 19:32 PAWSS Have you Been Recently Intoxicated or Drunk Within the Last 30 days?: No Have you Ever Experienced Previous Episodes of Alcohol Withdrawal?: No Have you ever Experienced Withdrawal Seizures?: No Have you ever Experienced Delirium Tremens(DT)s?: No Have you ever undergone Alcohol Rehabilitation Treatment (i.e, inpt ot outpatient treatment programs)?: No Have you ever Experienced Blackouts?: No Have you ever Combined Alcohol with other Downers within the last 90 days?: No Have you ever Combined Alcohol with any other Substance of Abuse during the last 90 days?: No Result: 0
[2023-03-09] MEDS: Normal Saline 1,000 ML 1000 ML IV (19:55)
[2023-03-09 19:59] LABS: INR 1.4 (0.9-1.1); Prothrombin Time 13.3 sec (9.1-11.1)
[2023-03-09 20:14] LABS: Atypical Lymphocytes % 12
[2023-03-09 20:15] LABS: Absolute Eosinophil Count 0.32 10^3/uL (0.0-0.7); Absolute Monocyte Count 1.28 10^3/uL (0.1-0.8); Metamyelocytes % 1
[2023-03-09 20:16] LABS: Diff Comment Manual Differential
[2023-03-09 20:17] LABS: Howell-Jolly Bodies 1+
[2023-03-09 20:18] LABS: ALT 44 U/L (14-59); AST 39 U/L (15-37); Albumin 3.7 g/dL (3.4-5.0); Alkaline Phosphatase 41 U/L (46-116); Anion Gap 7.8 mmol/L (3-11); BUN 24 mg/dL (7-18); Bilirubin, Total 1.2 mg/dL (0.2-1.0); CO2 25.2 mmol/L (21.0-32.0); Calcium 8.6 mg/dL (8.5-10.1); Chloride 104 mmol/L (98-107); Creatine Kinase 75 U/L (26-192); Estimated GFR 60.61 (mL/min/1.73m2); Glucose 176 mg/dL (74-106); Platelet Count 177 10^3/uL (130-400); Potassium 3.8 mmol/L (3.5-5.1); Sodium 137 mmol/L (136-145); Total Protein 6.8 g/dL (6.4-8.2); Troponin I < 50 ng/L (<or=60)
--- NOTE | 2023-03-09 21:00 | DI.VRAD_ITS ---
PROCEDURE INFORMATION: Exam: XR Left Shoulder Exam date and time: 03/09/2023 8:18 PM Age: 72 years old Clinical indication: Injury or trauma; Fall; Blunt trauma (contusions or hematomas); Left; Injury date: 03/09/23; Patient HX: Shoulder injury TECHNIQUE: Imaging protocol: Radiologic exam of the left shoulder. Views: 2 or more views. COMPARISON: CT HEAD CERVICAL SPINE WO 03/09/2023 8:09 PM FINDINGS: Bones/joints: Impacted comminuted fracture of the surgical neck of the humerus. Portion of the fracture extends into the inferior greater tuberosity. The shaft of the humerus is medially angulated relative to the head of the humerus. Soft tissues: No significant abnormality IMPRESSION: Proximal humerus fracture as described Dictated and Authenticated by: Ha Manriquez MD. Ordering:ROJELIO Vegas MD
--- NOTE | 2023-03-09 21:10 | DI.VRAD_ITS ---
PROCEDURE INFORMATION: Exam: CT Head Without Contrast Exam date and time: 03/09/2023 8:09 PM Age: 72 years old Clinical indication: Injury or trauma; Fall; Blunt trauma (contusions or hematomas); Consciousness not specified; Injury date: 03/09/23 TECHNIQUE: Imaging protocol: Computed tomography of the head without contrast. Radiation optimization: All CT scans at this facility use at least one of these dose optimization techniques: automated exposure control; mA and/or kV adjustment per patient size (includes targeted exams where dose is matched to clinical indication); or iterative reconstruction. COMPARISON: No relevant prior studies available. FINDINGS: Brain: No acute intracranial hemorrhage, mass-effect, midline shift, or extra-axial collection is seen. The sheehan white matter differentiation appears preserved. There is mild symmetric parenchymal volume loss. Cerebral ventricles: The ventricular system and basilar cisterns appear appropriate in size and configuration. Paranasal sinuses: The paranasal sinuses appear well aerated. No air-fluid levels are seen. Mastoid air cells: The mastoid air cells appear well-aerated. Auditory system: The middle ear cavities appear clear. Orbital cavities: The globes and intraorbital structures appear grossly intact. There appears to have been prior ocular banding on the right. Correlation with procedure history is recommended. Bones/joints: The bony calvarium appears intact. No depressed skull fracture is seen. Soft tissues: No gross focal scalp hematoma is seen. IMPRESSION: No acute intracranial hemorrhage or depressed skull fracture. PROCEDURE INFORMATION: Exam: CT Cervical Spine Without Contrast Exam date and time: 03/09/2023 8:09 PM Age: 72 years old Clinical indication: Injury or trauma; Fall; Blunt trauma (contusions or hematomas); Consciousness not specified; Injury date: 03/09/23 TECHNIQUE: Imaging protocol: Computed tomography of the cervical spine without contrast. Radiation optimization: All CT scans at this facility use at least one of these dose optimization techniques: automated exposure control; mA and/or kV adjustment per patient size (includes targeted exams where dose is matched to clinical indication); or iterative reconstruction. COMPARISON: CR XR THORACIC SPINE COMPLETE 05/02/2022 12:39 PM FINDINGS: Bones/joints: No acute cervical fracture cervical fracture or malalignment is seen. T1: Superior endplate compression deformity with mild loss of anterior vertebral height, uncertain chronicity but suspected to be old. Comparison with prior imaging recommended. C2-C3: Disc height preserved. Severe bilateral facet arthrosis. No significant cervical stenosis or foraminal narrowing. C3-C4: Loss of disc height. Severe bilateral facet arthrosis. No significant cervical stenosis. Mild bilateral foraminal narrowing. C4-C5: Disc height preserved. Severe right-sided facet arthrosis. No significant cervical stenosis or foraminal narrowing. C5-C6: Loss of disc height with anterior osteophyte formation, posterior osteophytic ridging, and bilateral uncovertebral hypertrophy. No significant cervical stenosis. Mild bilateral foraminal narrowing. C6-C7: Loss of disc height with anterior osteophyte formation, posterior osteophytic ridging, and bilateral uncovertebral hypertrophy. Mild right and moderate left-sided foraminal narrowing. No significant cervical stenosis. C7-T1: Disc height preserved. No significant cervical stenosis. No right-sided foraminal narrowing. Minimal left-sided foraminal narrowing. Thyroid: The thyroid gland is partially excluded from view but appears grossly unremarkable through its visualized portion. There are small indeterminate hypoattenuating thyroid lesions with the largest measuring 7 mm on the right on image 274 of series 7, not well characterized by today's exam but possibly colloid cysts and/or hypoattenuating nodules. Lungs: The lung apices appear clear. Soft tissues: Within the limits of the exam, no gross soft tissue fluid collection is seen in the neck. IMPRESSION: 1. No acute cervical fracture or malalignment is seen. 2. T1: Superior endplate compression deformity with mild loss of anterior vertebral height, uncertain chronicity but suspected to be old. Comparison with prior imaging recommended. Dictated and Authenticated by: Landon Duarte MD. Ordering:[facility] Stefan Vegas MD
--- NOTE | 2023-03-09 21:42 | W.PM.HP.N ---
Date of service: 03/09/23 Time of Service: 21:43 Assessment and Plan Assessment and plan (1) Syncope: Start date: 03/09/23 Start time: 06:30 Status: Acute Assessment and plan: The patient comes to the ED tonight after sustaining a syncopal episode while at a small gathering. There is no documentation for any seizure-like activity. She does not report of any prior history with syncope. Prior to the event she did have some alcohol and was smoking a lot of marijuana. Earlier on in the day she did also take one tablet of Oxycodone. Prior to this episode she did not have any cardiopulmonary symptoms and did not exhibit any stroke like activity. While in the ER her heart rate is in the 60s there are no ST/T wave abnormalities or arrhythmias noted on telemetry. Her EKG shows sinus bradycardia and her hsTrop is neg x1. Her hemoglobin is normal. At this time her syncopal event is most likely due to multifactorial effect of medications, drugs and alcohol. -Cont w/ IVF and obtain orthostatic vitals -Monitor telemetry and if she continues to be bradycardic consider cardiology evaluation and Echo. Her prior history shows HR 70. I suspect her heart rate should improve as the oxycodone, aclohol and marijuana are metabolized. -[place] Syncope Scale = 0 Low risk for serious adverse outcomes -Her hemoglobin is normal -Low suspicion for CVA/Seizure as an etiology - CT head normal -Low suspicion for ACS as an etiology Full Code Surrogate Decision Maker Neda Faustin (d) - ph unk Cole Faustin (s) - ph unk Qualifiers: Encounter type: initial encounter (2) Closed fracture of left proximal humerus: Start date: 03/09/23 Start time: 22:47 Status: Acute Assessment and plan: L Shoulder XR w/ proximal humerus fracture sustained from syncopal event and her falling down 4 cement stairs -Cont w/ pain management w/ Percocet 5mg/325 q6h (4 dose max and then re-evaluate) and IV Morphine 2mg q3h prn for breakthrough -Cont w/ sling -Consult Ortho in AM Qualifiers: Encounter type: initial encounter History of Present Illness History of Present Illness Chief Complaint: I fell down Narrative: The patient is a 72 y/o C F w/ PMH hereditary spherocytosis s/p splenectomy as a child who comes into the ER tonight due to a syncopal episode. She was attending a small gathering with approximately 8 people at 6:30pm when she began to experience lightheadedness. She went outside to get some fresh air but afterwards cannot recall the full details as she had a syncopal episode which lasted for af ew minutes, although the exact time period is unknown. She fell down 4 [address] stairs. On regaining consciousness the patient did not have any postictal confusion and was aware of her surroundings. She did not report of any pain. She does not report any prior history of syncope. Earlier on in the day at 12:00pm she did take a tablet of Oxycodone 5mg which she was prescribed for back pain during a skiing accident, May 2022. She does not take Oxycodone on a regular basis but she was shoveling and piling wood in her house for the stove today and was having increased pain for which she took one dose of the Oxycodone 5mg. During the constitution party she did have a small drink of gin and tonic and smoked quite a bit of marijuana. She denies any fever, chills or night sweats. She did have a headache earlier on in the day but did not have any vision loss or pain. She did not have any issues w/ dysarthria or dysphagia. She had no chest pain, palpitations, coughing, wheezing or dyspnea. She did not have any prodromal symptoms for headaches or any narrowing of vision prior to the syncope. She did not have any new onset weakness or paresthesias. She has no history of seizures and there was not any documented tonic-clonic activity. On further review the patient does smoke marijuana on a daily basis and drinks alcohol, a small shot, at least 5 days out of the week. Review of Systems All systems reviewed & are unremarkable except as noted in HPI and below Constitutional Constitutional: Denies chills, Denies fever(s), Denies frequent falls, Reports headache(s), Denies lethargy, Denies night sweats, Denies weakness and Denies weight loss Eyes Eyes: Denies blurry vision, Denies change in vision, Denies diplopia, Denies loss of vision and Denies eye pain ENT Ears, Nose, Mouth, and Throat: Reports abnormal hearing, Denies dysphagia, Reports dizziness and Reports headache(s) Cardiovascular Cardiovascular: Denies chest pain, Reports syncope, Denies rapid heart rate, Reports lightheadedness, Denies radiating jaw, neck or arm pain, Denies palpitations, Denies dyspnea, Denies dyspnea on exertion, Denies orthopnea and Denies paroxysmal nocturnal dyspnea Respiratory Respiratory: Denies cough, Denies pain with cough, Denies dyspnea and Denies dyspnea on exertion Gastrointestinal Gastrointestinal: Denies abdominal pain, Denies hematochezia, Denies constipation, Denies dysphagia, Denies diarrhea and Denies vomiting Genitourinary Genitourinary: Denies hematuria and Denies dysuria Musculoskeletal Musculoskeletal: Reports arthralgias (L shoulder) and Denies numbness Neurologic Neurologic: Reports abnormal hearing, Reports dizziness, Reports syncope, Denies frequent falls, Reports headache(s), Denies loss of vision, Denies numbness and Denies weakness Psychiatric Psychiatric: Denies anxiety and Denies depression Endocrine Endocrine: Denies palpitations PFSH All Active Problems (Updated 03/09/23 @ 22:52 by Ren Ruvalcaba MD) Closed fracture of left proximal humerus (Acute) Syncope (Acute) Bradycardia (Acute) COVID-19 (Acute) 01/09/23 Severe low back pain (Acute) Abnormal urine color (Acute) Compression fracture of lumbar vertebra with delayed healing (Acute) T7-T12 level spinal cord injury (Chronic) T8 BURST FX-CORD COMPRESSION. 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 Low back pain (Acute) Weight loss, intentional (Acute) Compression fracture (Acute) 2019 Encounter for screening colonoscopy (Acute) Tubular adenoma of colon (Acute) Low back pain (Acute) Jaw clicking (Acute) Urinary urgency (Acute) Abnormal mammogram (Acute) Sternal pain (Acute) after fall while skiing Post-menopause (Acute) Compression fracture of body of thoracic vertebra (Acute) Compression fracture of lumbar vertebra (Acute) Medical History Retinal detachment 04/01/02 NOS Annual physical exam (05/09/15) Full thickness rotator cuff tear (04/14/13) supraspinatus tear by MRI 04/14/13 [id number] Surgical History History of back surgery x 2 S/P cholecystectomy Hx of appendectomy S/P tonsillectomy H/O splenectomy at age 6 mos. D/T spercytosis S/P rotator cuff repair 08/30/13 Tonsillectomy Splenomegaly AT AGE 6MO D/T SPHERCYTOSIS Rotator Cuff Repair 08/2013 Cholecystectomy BACK SURGERY Appendectomy Family History Mother Hyperlipidemia Father , 79 Prostate cancer Lung cancer Brother Substance abuse Maternal Grandfather No problems noted. Paternal Grandfather Lung cancer Maternal Grandmother , 50 +/- Breast cancer Paternal Grandmother Breast cancer Sister No problems noted. Sister No problems noted. Brother No problems noted. Brother No problems noted. Son Hereditary spherocytosis Substance abuse Daughter Hereditary spherocytosis Depression Son Hereditary spherocytosis Social History Smoking/Tobacco Use Status: Former Tobacco Use tobacco type: cigarettes Quit Date: 04/01/21 Tobacco: How many years used: 10 Second Hand Exposure: No Smoking risk assessment performed?: Yes Alcohol Intake: current Alcohol Intake frequency: a few times a month Alcohol type: wine Drug use: Occasionally Substance use type: marijuana Details: Uses for pain Caregiver/Support person: No Household members: none Housing: house Communication Needs: Hard of Hearing and Corrective Lenses Do you need help understanding health information?: Never Pets and animals: No Sexually active: No Do you think of yourself as: straight/heterosexual Current gender identity: female What is your relationship status?: How often do you talk on the phone with friends or family?: three or more times per week How often do you get together with friends or relatives?: twice per week How often do you attend roman catholic or episcopalian services?: decline to answer Do you belong to any clubs or organized social groups?: no Panel score (0-1 are the most socially isolated patients): 1 What type of physical activity do you participate in: walking, bicycling and yoga Duration: 15-30 minutes/day Frequency: 1-2 times per week Shayna/Rastafarian: None Special shayna needs: No Seatbelt use: always Drive intox or ride 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 Do you feel safe at home: Yes Do you feel safe in your relationship?: Yes Meds Allergies and Home Medications Allergies Allergy/AdvReac Type Severity Reaction Status Date / Time No Known Allergies Allergy Verified 03/09/23 19:40 Home Medications Medication Instructions Recorded Confirmed Type ibuprofen 200 mg tablet (Motrin IB) 200 - 600 mg PO DAILY PRN 09/29/12 03/09/23 History latanoprost 0.005 % eye drops 1 drp ophthalmic (eye) HS 11/28/16 03/09/23 History (Xalatan) acetaminophen 500 mg tablet 1,000 mg (2 x 500 mg) PO TID PRN 12/11/16 03/09/23 Rx (Acetaminophen Extra Strength) PRN #120 tabs timolol maleate 0.25 % eye drops 1 drp ophthalmic (eye) DAILY 06/25/19 03/09/23 History melatonin 5 mg sublingual tablet 5 mg sublingual HS PRN 01/22/20 03/09/23 History loteprednol etabonate 0.5 % eye 2 drp ophthalmic (eye) DAILY PRN 07/13/21 03/09/23 History drops,suspension alendronate 70 mg tablet (Fosamax) 70 mg PO QWEEK #14 tabs 05/14/22 03/09/23 Rx calcium carb-ergocalciferol (vit 1 tab PO DAILY 03/09/23 03/09/23 History D2) 600 mg calcium-200 unit tablet vitamin B complex (B 1 tab PO DAILY 03/09/23 03/09/23 History Complex-Vitamin B12 tablet) Exam Const General: cooperative and no acute distress Orientation: alert, awake and oriented x3 HENMT Head: normal to inspection and atraumatic Ears: hearing grossly normal bilaterally General nose exam: external nose normal Face and sinus: normal facial exam Mouth: oral mucosae normal Eyes General: appearance normal, both eyes and all related structures Pupils: PERRL Neck Neck: normal visual inspection and full ROM Chest Chest: normal inspection of the chest Resp Effort & Inspection: normal respiratory effort, able to speak in complete sentences and no audible wheezes Auscultation: clear to auscultation bilaterally Cardio Rate: bradycardic Rhythm: regular rhythm Heart Sounds: S1 normal and S2 normal GI Inspection: normal to inspection Palpation: soft Percussion: normal to percussion Skin General skin exam: no rashes or lesions noted and elasticity normal Neuro General: patient alert, patient awake, patient oriented x3 and CN's II-XI intact bilaterally Extrem Other: LUE in sling Psych Appearance: grossly normal and well kempt Results Labs 03/09/23 19:40 03/09/23 19:40 Labs: Laboratory Results - last 24 hr 03/09/23 19:40 WBC 10.67 RBC 4.13 Hgb 13.6 Hct 38.7 MCV 94 MCH 32.9 MCHC 35.1 RDW 12.4 Plt Count 177 MPV 11.9 H Immature Gran % See Differential Neutrophils % 25.0 Lymphocytes % 47.0 Atypical Lymphs % 12 Monocytes % 12.0 Eosinophils % 3.0 Basophils % 0.0 Metamyelocytes % 1 Nucleated RBC % 0.0 Absolute Neutrophils 2.67 Absolute Lymphocytes 6.30 H Absolute Monocytes 1.28 H Absolute Eosinophils 0.32 Absolute Basophils 0.00 RBC Morphology See Below Damon-Loiza Bodies 1+ PT 13.3 H INR 1.4 H Sodium 137 Potassium 3.8 Chloride 104 Carbon Dioxide 25.2 Anion Gap 7.8 BUN 24 H Creatinine 1.0 Est GFR (CKD-EPI 2020) 60.61 Glucose 176 H Calcium 8.6 Total Bilirubin 1.2 H AST 39 H ALT 44 Alkaline Phosphatase 41 L Creatine Kinase 75 Troponin I < 50 Total Protein 6.8 Albumin 3.7 Last Vital Signs Pulse 48 L 03/09/23 20:31 Resp 11 L 03/09/23 20:31 BP 111/56 L 03/09/23 20:31 Pulse Ox 99 03/09/23 20:31 PAWSS Have you Been Recently Intoxicated or Drunk Within the Last 30 days?: No Have you Ever Experienced Previous Episodes of Alcohol Withdrawal?: No Have you ever Experienced Withdrawal Seizures?: No Have you ever Experienced Delirium Tremens(DT)s?: No Have you ever undergone Alcohol Rehabilitation Treatment (i.e, inpt ot outpatient treatment programs)?: No Have you ever Experienced Blackouts?: No Have you ever Combined Alcohol with other Downers within the last 90 days?: No Have you ever Combined Alcohol with any other Substance of Abuse during the last 90 days?: No Result: 0 Time Spent Time spent with Patient: <40 minutes Time was spent: preparing to see the patient(eg.review tests), obtaining and/or reviewing separately otained hiistory, ordering medications,tests, procedures and indepentently interpreting results
[2023-03-09] MEDS: oxyCODONE 5 mg/Acetaminophen 325 mg TAB 1 TAB PO (23:45)
[2023-03-10] MEDS: Enoxaparin 40 MG/0.4 ML SYR SC (00:01)
[2023-03-10] MEDS: Lactated Ringers 1,000 ML 75 ML IV (00:01)
[2023-03-10 04:50] VITALS: BP 139/80; PULSE 63; RESP 17; TEMP 36.1; O2SAT 100
[2023-03-10] MEDS: oxyCODONE 5 mg/Acetaminophen 325 mg TAB 1 TAB PO ×2 (06:38→12:17)
[2023-03-10 07:03] LABS: HCT 38.1 % (36.0-46.0); HGB 13.3 g/dL (11.2-15.7); MCHC 34.9 % (32.0-36.0); MCV 95 fL (80-95); MPV 11.8 fL (8.0-11.0); Platelet Count 204 10^3/uL (130-400); RBC 4.03 10^6/uL (3.93-5.22); RDW 12.4 % (11.7-14.6); RDW-SD 43.1 fL
[2023-03-10 07:37] LABS: WBC 14.04 10^3/uL (4.4-10.8)
[2023-03-10 07:46] VITALS: BP 145/77; PULSE 61; RESP 16; TEMP 36.8; O2SAT 99
[2023-03-10 07:52] VITALS: BP 127/83; BP 145/77; PULSE 74; PULSE 81
[2023-03-10] MEDS: Normal Saline Flush 10 ML SYR (08:23)
--- NOTE | 2023-03-10 09:33 | NUR.NOTE ---
Nursing Note: At approximately 0930 on 03/10/23, this RN returned a call from Nighat (pt.'s friend - on HIPAA). RN updated pt.'s friend regarding how the pt.'s night had gone, how the pt.'s morning is going so far, and what the possibility of pt. being discharged is. RN informed pt.'s friend that the hospitalist was hoping to have the pt. be assessed by one of the orthopedic surgeons and that neither of the orthopedic surgeons is available until tomorrow (Saturday03/11/23). Pt.'s friend verbalized understanding and presented with a few questions that were answered. Pt.'s friend then asked that this RN ask the pt. if they would like to have their cell phone. RN informed pt.'s friend that the pt. was asleep at this time, but that the next time this RN rounded on the pt., they would ask the pt. and would assist them in calling the pt.'s friend if they did want their cell phone. Pt.'s friend verbalized understanding and thanked the RN. Phone call then ended.
--- NOTE | 2023-03-10 10:49 | DSE_ITS ---
Date of service: 03/10/23 Time of Service: 10:49 DS: Diagnosis Discharge Diagnosis (1) Syncope: Status: Acute (2) Closed fracture of left proximal humerus: Status: Acute Discharge Plan Disposition Patient Disposition: Home Condition: Improving Discharge Details Reason For Visit: Syncope, L Humerus, Fracture Admit Date/Time: 03/09/23 22:22 Admit Provider: Ren Ruvalcaba Attending Provider: Ren Ruvalcaba Primary Care Provider: Florencia Worthington Hospital Course Hospital Course: This is a 72 year old female patient who presented to the [facility] ED after sustaining a syncopal episode while at a small gathering. There is no documentation for any seizure-like activity. She did not report of any prior history with syncope. Prior to the event she did have some alcohol and was smoking a lot of marijuana. Earlier in the day she did also take one tablet of Oxycodone. Prior to this episode she did not have any cardiopulmonary symptoms and did not exhibit any stroke like activity. Her heart rate is in the 60s there are no ST/T wave abnormalities or arrhythmias noted on telemetry. Her EKG showed sinus bradycardia and her hsTrop is neg x2. Her hemoglobin is normal. Her syncopal event is most likely due to multifactorial effect of medications, drugs and alcohol. -[place] Syncope Scale = 0 Low risk for serious adverse outcomes. There is not an orthopedic provider senior data integration developer. Patient would like to go home and be seen out patient. I did speak with Dr Reyes and he provided guidance. Wear sling when out of bed. Otherwise rest forearm on pillows. Non-weight bearing through that extremity. Gentle wrist hand and elbow use ok. Patient asked to calll orthopedics tomorrow to make an appointment. Start oxycodone as needed for severe pain and ibuprofen for mild - moderate pain. Patient vital signs are stable. Her pain is controlled. She is discharged with a sling. Home Meds and New Rx's Prescriptions: New oxycodone 5 mg tablet 5 mg PO Q6H PRNQty: 14 0RF Continued loteprednol etabonate 0.5 % drops,suspension 2 drp ophthalmic (eye) DAILY PRN Patient Comments: SHAKE LIQUID AND INSTILL 1 DROP IN RIGHT EYE THREE TIMES DAILY timolol maleate 0.25 % drops 1 drp OP DAILY alendronate [Fosamax] 70 mg tablet 70 mg PO QWEEK Qty: 14 4RF latanoprost [Xalatan] 2.5 ML drops 1 drp Ophthalmic HS acetaminophen [Acetaminophen Extra Strength] 500 MG tablet 1,000 mg PO TID PRN PRNQty: 120 0RF melatonin 5 mg Tablet, Sublingual 5 mg SUBLINGUAL HS PRN vitamin B complex [B Complex-Vitamin B12] Tablet 1 tab PO DAILY calcium carbonate-vitamin D2 600 mg calcium- 200 unit tablet 1 tab PO DAILY Changed ibuprofen [Motrin IB] 200 MG tablet 600 mg PO Q6H PRN PRN (Reason: Pain (Scale Score 4-6)) Qty: 0 0RF Discharge Instructions Instructions: Oxycodone, Rapid Release (By mouth), Arm Fracture in Adults (DC), How to Use a Sling (DC), Ice Pack Application (DC) Additional Instructions: Wear sling when out of bed. Otherwise rest forearm on pillows. Apply ice for 15 min every 2h while awake. Non-weight bearing through that extremity. Gentle wrist hand and elbow use ok. Call orthopedics tomorrow to make an appointment. Take oxycodone as needed for severe pain and ibuprofen for mild - moderate pain. Stand Alone Forms: Nursing Discharge Form Referrals: Wojciech Reyes MD [ [facility] STAFF PHYSICIAN] - (Call Saturday for appointment at the clinic) Activity:: Rest arm on pillow Equipment/Supplies:: Sling Diet:: As Tolerated Discharge Orders Discharge Orders: Discharge Order (Routine); Ordered 03/10/23 Ordered By: Marcela Yu DS: Summary Time Spent with Patient providing and/or coordinating discharge services: Greater than 30 minutes Status at Discharge Functional status at discharge: independent ambulation Overall status at discharge: other (acute humerus fx) Mental Status: mental status grossly normal Speech and Movement: speech and movement normal Mood: congruent mood Affect: normal affect Exam Const General: cooperative and no acute distress Orientation: alert, awake and oriented x3 HENMT Head: normal to inspection and atraumatic Ears: hearing grossly normal bilaterally General nose exam: external nose normal Face and sinus: normal facial exam Mouth: oral mucosae normal Eyes General: appearance normal, both eyes and all related structures Pupils: PERRL Neck Neck: normal visual inspection and full ROM Chest Chest: normal inspection of the chest Resp Effort & Inspection: normal respiratory effort, able to speak in complete sentences and no audible wheezes Auscultation: clear to auscultation bilaterally Cardio Rate: bradycardic Rhythm: regular rhythm Heart Sounds: S1 normal and S2 normal GI Inspection: normal to inspection Palpation: soft Percussion: normal to percussion Skin General skin exam: no rashes or lesions noted and elasticity normal Neuro General: patient alert, patient awake, patient oriented x3 and CN's II-XI intact bilaterally Extrem Other: LUE in sling Psych Appearance: grossly normal and well kempt Mental Status: mental status grossly normal Speech and Movement: speech and movement normal Mood: congruent mood Affect: normal affect DS: Data Vitals/I&O Vitals and I&O: Vital Signs Temperature 36.8 C 03/10/23 07:46 Temperature Source Tympanic 03/10/23 07:46 Pulse 81 03/10/23 07:52 Pulse Rhythm Regular 03/09/23 23:09 Pulse 56 L 03/09/23 21:10 Respiratory Rate 16 03/10/23 07:46 Respiratory Effort Normal, Non-Labored 03/09/23 23:09 Respiratory Depth Normal 03/09/23 23:09 Respiratory Pattern Normal 03/09/23 23:09 Blood Pressure 145/77 H 03/10/23 07:52 Blood Pressure Mean 147 03/09/23 21:18 Pulse Oximetry 99 03/10/23 07:46 Oxygen Delivery Method Room Air 03/10/23 07:46 Oxygen Flow Rate 0 03/10/23 07:46 Pain Level 3 03/10/23 09:08 Intake & Output 03/09/23 03/09/23 03/10/23 11:59 23:59 11:59 Intake Total 1010 / 1010 240 / 240 Balance 1010 / 1010 240 / 240 Weight 66.315 kg Intake: IV 1010 / 1010 Oral 240 / 240 Other: Urine Color Yellow Urine Appearance Clear Urine Odor Normal Comment Void x1 in the toilet. No measuring hat in the toilet. RN unable to determine urine amount. Voiding Methods Toilet Data Completed and Pending Labs on day of discharge: Labs from last 24 hours 03/10/23 03/09/23 06:20 19:40 WBC 14.04 H 10.67 RBC 4.03 4.13 Hgb 13.3 13.6 Hct 38.1 38.7 MCV 95 94 MCH 33.0 32.9 MCHC 34.9 35.1 RDW 12.4 12.4 Plt Count 204 177 MPV 11.8 H 11.9 H Immature Gran % See Differential Neutrophils % 25.0 Lymphocytes % 47.0 Atypical Lymphs % 12 Monocytes % 12.0 Eosinophils % 3.0 Basophils % 0.0 Metamyelocytes % 1 Nucleated RBC % 0.0 Absolute Neutrophils 2.67 Absolute Lymphocytes 6.30 H Absolute Monocytes 1.28 H Absolute Eosinophils 0.32 Absolute Basophils 0.00 RBC Morphology See Below [place] Bodies 1+ PT 13.3 H INR 1.4 H Sodium 137 Potassium 3.8 Chloride 104 Carbon Dioxide 25.2 Anion Gap 7.8 BUN 24 H Creatinine 1.0 Est GFR (CKD-EPI 2020) 60.61 Glucose 176 H Calcium 8.6 Total Bilirubin 1.2 H AST 39 H ALT 44 Alkaline Phosphatase 41 L Creatine Kinase 75 Troponin I < 50 Total Protein 6.8 Albumin 3.7 PFSH All Active Problems (Updated 03/09/23 @ 22:52 by Ren Ruvalcaba MD) Closed fracture of left proximal humerus (Acute) Syncope (Acute) Bradycardia (Acute) COVID-19 (Acute) 01/09/23 Severe low back pain (Acute) Abnormal urine color (Acute) Compression fracture of lumbar vertebra with delayed healing (Acute) T7-T12 level spinal cord injury (Chronic) T8 BURST FX-CORD COMPRESSION. 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 Low back pain (Acute) Weight loss, intentional (Acute) Compression fracture (Acute) 2019 Encounter for screening colonoscopy (Acute) Tubular adenoma of colon (Acute) Low back pain (Acute) Jaw clicking (Acute) Urinary urgency (Acute) Abnormal mammogram (Acute) Sternal pain (Acute) after fall while skiing Post-menopause (Acute) Compression fracture of body of thoracic vertebra (Acute) Compression fracture of lumbar vertebra (Acute) Medical History Retinal detachment 04/01/02 NOS Annual physical exam (05/09/15) Full thickness rotator cuff tear (04/14/13) supraspinatus tear by MRI 04/14/13 [id number] Surgical History History of back surgery x 2 S/P cholecystectomy Hx of appendectomy S/P tonsillectomy H/O splenectomy at age 6 mos. D/T spercytosis S/P rotator cuff repair 08/30/13 Tonsillectomy Splenomegaly AT AGE 6MO D/T SPHERCYTOSIS Rotator Cuff Repair 08/2013 Cholecystectomy BACK SURGERY Appendectomy Family History Mother Hyperlipidemia Father , 79 Prostate cancer Lung cancer Brother Substance abuse Maternal Grandfather No problems noted. Paternal Grandfather Lung cancer Maternal Grandmother , 50 +/- Breast cancer Paternal Grandmother Breast cancer Sister No problems noted. Sister No problems noted. Brother No problems noted. Brother No problems noted. Son Hereditary spherocytosis Substance abuse Daughter Hereditary spherocytosis Depression Son Hereditary spherocytosis Social History Smoking/Tobacco Use Status: Former Tobacco Use tobacco type: cigarettes Quit Date: 04/01/21 Tobacco: How many years used: 10 Second Hand Exposure: No Smoking risk assessment performed?: Yes Alcohol Intake: current Alcohol Intake frequency: a few times a month Alcohol type: wine Drug use: Occasionally Substance use type: marijuana Details: Uses for pain Caregiver/Support person: No Household members: none Housing: house Communication Needs: Hard of Hearing and Corrective Lenses Do you need help understanding health information?: Never Pets and animals: No Sexually active: No Do you think of yourself as: straight/heterosexual Current gender identity: female What is your relationship status?: How often do you talk on the phone with friends or family?: three or more times per week How often do you get together with friends or relatives?: twice per week How often do you attend temple or adventist services?: decline to answer Do you belong to any clubs or organized social groups?: no Panel score (0-1 are the most socially isolated patients): 1 What type of physical activity do you participate in: walking, bicycling and yoga Duration: 15-30 minutes/day Frequency: 1-2 times per week Shayna/Yarsanism: None Special shayna needs: No Seatbelt use: always Drive intox or ride w/intox stock driver: No Do you feel safe at home: Yes Do you feel safe in your relationship?: Yes Time Spent with Patient Time Spent with Patient: 45-69 minutes Time was spent: preparing to see the patient(eg.review tests), ordering medications,tests, procedures, counseling the patient and care coordination
--- NOTE | 2023-03-11 07:34 | NUR.NOTE ---
Accessed Pt chart to complete the [facility] paperwork.
== END 2023-03-10 12:37 | disposition home or self-care (01) | DRG 563 ==
LOC: ER 22:01 → MS 23:06
PROVIDERS: Admitting Provider Student in an Organized Health Care Education/Training Program; Emergency Provider Emergency Medicine; PCP Family Medicine; Visit Provider Student in an Organized Health Care Education/Training Program
DX: S42.212A Unspecified displaced fracture of surgical neck of left humerus, initial encounter for closed fracture; S42.252A Displaced fracture of greater tuberosity of left humerus, initial encounter for closed fracture; R55 Syncope and collapse; F12.90 Cannabis use, unspecified, uncomplicated; Z90.81 Acquired absence of spleen; W10.8XXA Fall (on) (from) other stairs and steps, initial encounter; M54.50 Low back pain, unspecified; G47.00 Insomnia, unspecified; D58.0 Hereditary spherocytosis; R39.15 Urgency of urination; Z87.891 Personal history of nicotine dependence; R00.1 Bradycardia, unspecified
CPT/HCPCS: 00123; 36415; 80053; 82550; 85027; 93005; 96361; 96374; 96375; 99285; J1650; 70450; 72125; 73030; 84484; 85025; 85610; 93010; 99223; 99239; J2405

== ENCOUNTER 2023-03-13 17:00 | Outpatient (CLI) | payer MEDICARE, SELFPAY ==
--- NOTE | 2023-03-13 13:22 | DI.RAD_ITS ---
Exam(s) XR SHOULDER LT COMPLETE 2+V EXAM: XR SHOULDER LT COMPLETE 2+V INDICATION: F/U FRACTURE. COMPARISON: CR,XR XR SHOULDER LT COMPLETE 2+V from 03/09/2023 TECHNIQUE: 2D digital imaging was performed. Two views. FINDINGS: Fracture at the humeral head again noted. The humeral shaft now is displaced anteriorly and superior ly in relation to the humeral head. This degree displacement was not seen on the previous exam. The re may also be worsening of inferior subluxation of the humeral head with respect to the glenoid. DATA REPOSITORY: RADIATION DOSE DELIVERED:
== END 2023-03-13 17:01 | disposition home or self-care (01) ==
LOC: DIORS 17:00
PROVIDERS: PCP Family Medicine; Referring Provider Family Medicine; Visit Provider Student in an Organized Health Care Education/Training Program
DX: S42.202A Unspecified fracture of upper end of left humerus, initial encounter for closed fracture (principal); W10.8XXA Fall (on) (from) other stairs and steps, initial encounter
CPT/HCPCS: 99215; 73030

== ENCOUNTER → 2023-03-13 17:17 | Outpatient (CLI) | payer MEDICARE, SELFPAY ==
--- NOTE | 2023-03-13 13:45 | DI.CT_ITS ---
Exam(s) CT UPPER EXTREMITY LT WO EXAM: CT UPPER EXTREMITY LT WO CLINICAL HISTORY: ? surgical planning, closed fracture lt proximal humerus, S42.A. TECHNIQUE: Imaging Protocol: Axial computed tomography images with coronal and sagittal reformatted images were created and reviewed. COMPARISON: CR XR RIBS BI INCLUDE CHEST from 04/25/2022 CR XR THORACIC SPINE COMPLETE from 05/02/2022 CR XR SHOULDER LT COMPLETE 2+V from 03/13/2023 FINDINGS: Bones: Fracture at the neck of the humerus with multiple surrounding small comminuted fragments. The shaft is displaced anteriorly and soup relation to the humeral head. Bones appear osteoporotic. Ther e are chronic appearing deformities of right posterior ribs. Degenerative and postsurgical changes in the thoracic spine. Joints: No fracture fragments in the joint space. Inferior and posterior subluxation of the humeral head with respect to the glenoid. Surrounding effusion/hematoma and soft tissue swelling. Small marciano alexx anterior subcutaneous fat.. Soft Tissues: Normal. IMPRESSION: Displaced fracture of humeral neck with comminuted fragments. Inferior subluxation of the humeral hea d with respect to the glenoid. RADIATION DOSE DELIVERED: Total DLP Total DLP DATA REPOSITORY: All CT scans at this facility are submitted to the National Radiology Data Registry (NRDR) Dose Index Registry (DIR) with the [employer] (ACR). RADIATION OPTIMIZATION: All CT scans at this facility use at least one of these dose optimization te chniques: automated exposure control; mA and/or kV adjustment per patient size (includes targeted exa ms where dose is matched to clinical indication); or iterative reconstruction.
== END ==
PROVIDERS: PCP Family Medicine; Visit Provider Student in an Organized Health Care Education/Training Program
DX: S42.352D Displaced comminuted fracture of shaft of humerus, left arm, subsequent encounter for fracture with routine healing (principal); X58.XXXD Exposure to other specified factors, subsequent encounter
CPT/HCPCS: 73200

== ENCOUNTER 2023-03-19 11:55 | Outpatient (CLI) | payer MEDICARE, SELFPAY | END 2023-03-19 11:56 | disposition home or self-care (01) | LOC: DI.CM 11:56 | PROVIDERS: PCP Family Medicine; Visit Provider Family Medicine | DX: Z01.810 Encounter for preprocedural cardiovascular examination (principal) | CPT/HCPCS: 93010 ==

== ENCOUNTER → 2023-12-10 10:08 | Outpatient (BNVA) | payer MEDICARE, SELFPAY | PROVIDERS: PCP Family Medicine; Referring Provider Family Medicine; Visit Provider Physician Assistant Surgical | DX: R93.89 Abnormal findings on diagnostic imaging of other specified body structures (principal) | CPT/HCPCS: 99215 ==

== ENCOUNTER 2023-12-19 03:15 | Outpatient (CLI) | payer MEDICARE, SELFPAY ==
[2023-12-19] MEDS: Levalbuterol HFA 15 GM INH 4 PUFF IH (14:21)
[2023-12-19] MEDS: Inhaler, Assist Device 1 EACH MC (14:21)
--- NOTE | 2023-12-19 16:30 | PFT_ITS ---
Date of service: 12/19/23 Time of Service: 13:05 Pulmonary Function Test Result Requesting Provider Genet Brito Indications: Pleural thickening, former 5-pack-year smoker, quit more than 25 years ago. Current marijuana smoker, allergic rhinitis. History of hereditary spherocytosis. Interpretation Spirometry: Spirometry pre and post bronchodilators show: 1. Mild airway obstruction, which does not normalize after bronchodilator. This is corroborated by the flow-volume loop and volume-time curve morphologies. 2. No significant response to bronchodilator 3. Box Gluer comments indicate good patient effort. 4. The test meets [employer] [employer] standards of spirometry. Lung Volumes: Lung volume studies by plethysmography show: 1. No evidence of restriction. The total lung capacity is 106% predicted, and the slow vital capacity was 89% predicted. 2. Mild hyperinflation is indicated by a residual volume of 132% predicted, and RV/TLC of 125% predicted. Diffusion Capacity: The diffusing capacity by single breath carbon monoxide technique is normal. Impression Mild fixed airway obstruction, with mild hyperinflation. Note: Immediate and complete smoking cessation including marijuana, is recommended. Follow-up spirometry in 6 months after quitting all forms of smoking and vaping. For yearly to monitor trends if patient is unable to quit.
== END 2023-12-19 03:16 | disposition home or self-care (01) ==
LOC: RT 03:15
PROVIDERS: PCP Family Medicine; Visit Provider Physician Assistant Surgical
DX: J92.9 Pleural plaque without asbestos (principal); Z87.891 Personal history of nicotine dependence; F12.90 Cannabis use, unspecified, uncomplicated; J30.9 Allergic rhinitis, unspecified
CPT/HCPCS: 00123; 94060; 94726; 94729

== ENCOUNTER 2024-01-03 00:43 | Outpatient (CLI) | payer MEDICARE, SELFPAY ==
--- NOTE | 2024-01-03 06:30 | DI.CT_ITS ---
Exam(s) CT CHEST WO EXAM: CT CHEST WO CLINICAL HISTORY: f/u abnl findings, pleural thickening,j92.9 TECHNIQUE: Imaging Protocol: Axial computed tomography images with coronal and sagittal reformatted images were created and reviewed CONTRAST MATERIAL: Intravenous: Omnipaque 350 Contrast volume:structured data ml. COMPARISON: CT CT SHOULDER WO CONTRAST LEFT (GENERIC) from 10/22/2023 FINDINGS: Exam mildly limited by motion at the lung bases. Pulmonary parenchyma: No consolidation. No dominant measurable mass. Linear scarring or atelectasis at the left lung base. Tracheobronchial tree: No bronchiectasis or mucous plugging. Mediastinum and Meredith: No dominant adenopathy or fluid collection. Pleura: No effusion. No pneumothorax. Calcified pleural plaques seen at the left posterior lung base. Mild pleural thickening seen at the right posterior lung base. No suspicious features. Heart: The heart is not dilated. No coronary artery calcifications are seen. Aorta: Thoracic aorta non-dilated. Mild atherosclerotic changes. Pulmonary arteries: No gross evidence of emboli. Upper abdomen: No acute findings. Bones: Old sternal fracture. Left shoulder prosthesis creates artifact. Slight compression of the T3 vertebral body mild compression of the T5 vertebral body. Postsurgical changes seen at at T6 thr ough T8. Moderate compression fracture of the inferior end plate of T12. Soft tissues: Unremarkable. IMPRESSION: Bilateral pleural plaques at the lung bases, calcified on the left. No suspicious features. Old thoracic compression fractures and prior surgery. RADIATION DOSE DELIVERED: 170.44mGy.cm Total DLP DATA REPOSITORY: All CT scans at this facility are submitted to the National Radiology Data Registry (NRDR) Dose Index Registry (DIR) with the [employer] (ACR). RADIATION OPTIMIZATION: All CT scans at this facility use at least one of these dose optimization te chniques: automated exposure control; mA and/or kV adjustment per patient size (includes targeted exa ms where dose is matched to clinical indication); or iterative reconstruction.
== END 2024-01-03 01:03 ==
LOC: DI 00:43
PROVIDERS: PCP Family Medicine; Visit Provider Physician Assistant Surgical
DX: J92.9 Pleural plaque without asbestos (principal)
CPT/HCPCS: 71250

== ENCOUNTER → 2024-01-13 13:44 | Outpatient (BNVA) | payer MEDICARE, SELFPAY | PROVIDERS: PCP Family Medicine; Referring Provider Family Medicine; Visit Provider Physician Assistant Surgical | DX: R93.89 Abnormal findings on diagnostic imaging of other specified body structures (principal) | CPT/HCPCS: 99214 ==

== ENCOUNTER 2024-05-22 15:38 | Emergency (ER) | payer MEDICARE, SELFPAY ==
[2024-05-22 15:38] VITALS: BP 153/75; PULSE 80; RESP 12; TEMP 36.7; O2SAT 96
--- NOTE | 2024-05-22 16:10 | W.ED.GENAD ---
Discharge Plan Disposition Patient Disposition: Home Condition: Stable Discharge Details Clinical Impression: Dislocation of prosthetic joint of shoulder Primary Care Provider: Florencia Worthington ED Provider: Stone Cabezas Home Meds and New Rx's Prescriptions: Continued timolol maleate 0.25 % drops 1 drp OP BID diphenhydramine HCl [Unisom SleepGels] See Rx Instructions .ROUTE DIRECTED Rx Instructions: as directed; alendronate [Fosamax] 70 mg tablet 70 mg PO QWEEK Qty: 14 4RF latanoprost [Xalatan] 2.5 ML drops 1 drp Ophthalmic HS acetaminophen [Acetaminophen Extra Strength] 500 MG tablet 1,000 mg PO TID PRN PRNQty: 120 0RF melatonin 5 mg Tablet, Sublingual 5 mg SUBLINGUAL HS PRN vitamin B complex [B Complex-Vitamin B12] Tablet 1 tab PO DAILY calcium carbonate-vitamin D2 600 mg calcium- 200 unit tablet 1 tab PO DAILY ibuprofen [Motrin IB] 200 MG tablet 600 mg PO Q6H PRN PRN (Reason: Pain (Scale Score 4-6)) Qty: 0 0RF Discharge Instructions Instructions: Shoulder Sprain ED Additional Instructions: You were seen in the emergency department for your left shoulder pain, your shoulder appears aligned on x-ray today when compared with prior imaging, there was a palpable bulge suspecting at least partial dislocation or subluxation of the hardware of your reverse total shoulder, we gave you a mild muscle relaxant and had you use gravity to assist relaxing the muscles as I gently lifted your scapula and likely relocated the hardware as it looks more in place and you have achieved symptomatic relief on repeat imaging, please follow-up with orthopedic provider should you continue experience symptoms, please use therapeutic dosing of Tylenol (acetamenophen) & Advil (ibuprofen) in an alternating fashion as follows: Take 1000mg of Tylenol every 6 hours without missing doses- that is 4 times per day. [place] in between the Tylenol dosings, take 400-600mg of Advil also on a 6 hour schedule, that is also 4 times per day. The daily maximum dosing of Tylenol is 4000mg, and the daily maximum dosing of Advil is 2400mg. This is safe to do for weeks. Please note that some common cold medications & prescription pain medications may contain acetamenophen and you need to read OTC drug labels and factor that in to maximum daily dosings. Referrals: [facility] [Provider Group] Florencia Worthington MD, [place] [Primary Care Provider] - Discharge Data Discharge Date/Time-TO BE ENTERED AT DEPARTURE: 05/22/24 19:12 HPI General Date/Time Provider Initiated Documentation: 05/22/24 16:04. HPI Narrative: 73 year-old female presents to ED today by POV/ambulating with a chief complaint of possible L shoulder dislocation with onset earlier today washing her hair in the shower- has history of L reverse shoulder 1.5 years ago with some subluxation episodically. Patient is R-side dominant, surgery performed at [facility]. Quality described as decreased ROM, feels a knob in upper proximal arm anteriorly, no radiation to complete numbness, temperature changes, trauma, neck pain, tingling. Severity is described as mild to moderate. Palliating factors include nothing specific attempted. Provoking factors include nothing specific- normal ADLs. Patient not anticoagulated. Related Data Home Medications ?Medication ?Instructions ?Recorded ?Confirmed latanoprost 0.005 % eye drops 1 drp ophthalmic (eye) HS 11/28/16 05/22/24 (Xalatan) acetaminophen 500 mg tablet 1,000 mg (2 x 500 mg) PO TID PRN 12/11/16 05/22/24 (Acetaminophen Extra Strength) PRN #120 tabs timolol maleate 0.25 % eye drops 1 drp ophthalmic (eye) BID 06/25/19 05/22/24 melatonin 5 mg sublingual tablet 5 mg sublingual HS PRN 01/22/20 05/22/24 calcium carb-ergocalciferol (vit 1 tab PO DAILY 03/09/23 05/22/24 D2) 600 mg calcium-200 unit tablet vitamin B complex (B 1 tab PO DAILY 03/09/23 05/22/24 Complex-Vitamin B12 tablet) ibuprofen 200 mg tablet (Motrin IB) 600 mg (3 x 200 mg) PO Q6H PRN PRN 03/10/23 05/22/24 Pain (Scale Score 4-6) #0 tabs alendronate 70 mg tablet (Fosamax) 70 mg PO QWEEK #14 tabs 11/26/23 05/22/24 diphenhydramine HCl [Unisom See Rx Instructions .Route 12/10/23 05/22/24 SleepGels] DIRECTED Previous Rx's ?Medication ?Instructions ?Recorded acetaminophen 500 mg tablet 1,000 mg (2 x 500 mg) PO TID PRN 12/11/16 (Acetaminophen Extra Strength) PRN #120 tabs ibuprofen 200 mg tablet (Motrin IB) 600 mg (3 x 200 mg) PO Q6H PRN PRN 03/10/23 Pain (Scale Score 4-6) #0 tabs alendronate 70 mg tablet (Fosamax) 70 mg PO QWEEK #14 tabs 11/26/23 Allergies Allergy/AdvReac Type Severity Reaction Status Date / Time No Known Allergies Allergy Verified 05/22/24 15:47 General Stated Complaint: Orthopedic KAY: 4 Review of Systems All systems reviewed & are unremarkable except as noted in HPI and below Exam Narrative Exam Narrative: GENERAL APPEARANCE: Well-nourished, non-toxic, awake and alert, atraumatic, no acute distress. SKIN: Warm, pink, dry, intact, without rashes/lesions/ulcerations. HEAD: Normocephalic, atraumatic, normal hair distribution for gender/age. EYES: Normal conjunctiva, no exudates on lids/lashes. ENT: Nares patent, no circumoral cyanosis, no facial swelling NECK: Supple, trachea midline, painless cervical ROM. LUNGS/CHEST: Non-labored respirations, normal A/P diameter, symmetrical expansion, no chest wall deformity HEART (CV/PV): Regular rate, L radial pulse 2+, no peripheral edema, no JVD. ABDOMEN: Soft, non-distended, no guarding. MSK: No cyanosis, spine midline without tenderness, normal curvature, L arm limited ROM, palpable swelling at anterior shoulder- likely subluxation, NV intact distally, R UE WNL NEURO: Mental Status AAOx4 - alert to person, place, time, events No facial droop, no forehead involvement. Motor: No focal weakness - strength 5/5 in bilateral UEs and LEs, proximal and distal, symmetric. Sensory: sensation intact to light touch globally. Gait normal: patient ambulated without ataxia into ED room. PSYCH: euthymic, cooperative, pleasant, appropriate speech Course Vital Signs Vital signs: Vital Signs Temperature 36.7 C 05/22/24 15:38 Pulse 80 05/22/24 15:38 Respiratory Rate 12 05/22/24 15:38 Blood Pressure 153/75 H 05/22/24 15:38 Pulse Oximetry 96 05/22/24 15:38 Temperature 36.7 C 05/22/24 15:38 Temperature Source Oral 05/22/24 15:38 Pulse 80 05/22/24 15:38 Respiratory Rate 12 05/22/24 15:38 Blood Pressure 153/75 H 05/22/24 15:38 Blood Pressure Position Sitting 05/22/24 15:38 Pulse Oximetry 96 05/22/24 15:38 Oxygen Delivery Method Room Air 05/22/24 15:38 Oxygen Flow Rate 0 05/22/24 15:38 Pain Level 7 05/22/24 15:38 Procedure Joint Reduction Joint #1: Date of Procedure: 05/22/24 Time of procedure: 18:15 Provider that performed the procedure: Stone Cabezas Standard Time Out Performed: No Patient Consented: Verbally Pre-procedure medication: Other (1mg PO Ativan) Side: left Joint reduction location: shoulder Post-Reduction Neuro Exam: intact Post-Reduction Vascular Exam: intact Post Reduction X-Ray Obtained: Yes Post Reduction X-Ray Results: reduced Splint Applied: Yes Patient Tolerated Procedure: well Procedure Description/Note: Applied gentle manual pressure to lift scapula after patient hung their arm off the stretcher for 10 minutes. Satisfactory alignment, and reduction of palpable swelling at anterior shoulder. NV intact. Patient brought her own sling, was assisted into it post-reduction Medical Decision Making This dictation utilizes [id number] dictation software and may contain unedited grammatical errors. 73 year-old female presents to ED today by POV/ambulating with a chief complaint of possible L shoulder dislocation with onset earlier today washing her hair in the shower- has history of L reverse shoulder 1.5 years ago with some subluxation episodically. Patient is R-side dominant, surgery performed at [facility] [place]. Quality described as decreased ROM, feels a knob in upper proximal arm anteriorly, no radiation to complete numbness, temperature changes, trauma, neck pain, tingling. Severity is described as mild to moderate. Palliating factors include nothing specific attempted. Provoking factors include nothing specific- normal ADLs. Patients' medical history: Rotator cuff tear, old thoracic spine injuries lumbar compression fractures. Family and social history: Noncontributory. Pertinent exam findings / vital signs include anterior shoulder swelling indicating likely dislocation, neurovascularly intact distal left radial pulse 2+, turbogenerator operator strength 5/5, slight limited range of motion in the arm diffusely. Differential / pathologies of concern include dislocation, fracture unlikely due to benign nature of ADLs. Diagnostic studies of: -XR L shoulder pre and postreduction-shows questionable dislocation but better alignment after gentle reduction. Interventions of: -Provided 1 mg p.o. Ativan, had the patient hanging the arm off the bed for 10 minutes perform gentle massage with gentle elevation of scapula with good result. ED Course/Assessment/Plan: 73-year-old female presents with likely dislocation versus partial dislocation of left shoulder, initial x-ray is questionable but it does feel out of place on exam, was given Ativan for skeletal muscle relaxation and underwent some very gentle scapular manipulation with the patient noting relief and improved alignment on second x-ray. I counseled to follow-up with her shoulder surgeon and return for any further emergent concerns. Findings not consistent with fracture or neurovascular compromise. Disposition of dislocation of prosthetic joint of shoulder. Patient verbalized understanding of the plan and return to ED criteria and engaged in shared decision making. Medical Records Medical records reviewed: Yes I reviewed the patient's medical records. Imaging Data Radiologic Study: Attestation: I personally reviewed and interpreted this imaging study as follows: Imaging: X-Ray Radiologist's impression: EXAM: XR SHOULDER LT COMPLETE 2+V CLINICAL HISTORY: L shoulder pain; s/p reverse TSA 1 yr ago. TECHNIQUE: 2D digital imaging was performed. COMPARISON: CR XR SHOULDER LT COMPLETE 2+V from 03/13/[address] SHOULDER WO CONTRAST LEFT (GENERIC) from 10/22/2023 FINDINGS: 3 views There is a left shoulder reverse prosthesis again noted. No evidence of fracture or loosening. The distance between the components of the prosthesis appears slightly more than typical but unchanged from outside institution CT images of 10/22/2023. Therefore this may be related to the brand of prosthesis placed. Otherwise, there is again noted a posteriorly located personally calcified osteophytic density measuring of approximately 4 cm by 3 cm by 1 cm, this unchanged from the prior CT scan. There is no evidence of osteomyelitis. The subacromial space is not diminished. Ipsilateral clavicle and AC joint appear unremarkable. 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 However, this finding was also evident on the prior CT scan of 10/22/2023. 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 Radiologic Study #2: Attestation: I personally reviewed and interpreted this imaging study as follows: Imaging: X-Ray Radiologist's impression: EXAM: XR SHOULDER LT COMP POST REDUC CLINICAL HISTORY: re-eval - portable please. TECHNIQUE: 2D digital imaging was performed. COMPARISON: CR XR SHOULDER LT COMPLETE 2+V from 05/22/2024 FINDINGS: 3 views The components of the left shoulder reverse prosthesis appear to be in satisfactory position alignment. No fracture or loosening evident. IMPRESSION: As above Quality:SDOH Health Related Social Needs: No Data to Display PFSH All Active Problems (Updated 05/22/24 @ 18:48 by GOLD Delgadillo) Dislocation of prosthetic joint of shoulder (Acute) Need for hepatitis B screening test (Acute) Encounter for hepatitis C screening test for low risk patient (Acute) Knee pain (Acute) Abnormal CT scan (Acute) Pleural thickening (Acute) Elevated white blood cell count (Acute) Closed fracture of left proximal humerus (Acute 03/09/23) Syncope (Acute) Bradycardia (Acute) COVID-19 (Acute) 01/09/23 Severe low back pain (Acute) Abnormal urine color (Acute) Compression fracture of lumbar vertebra with delayed healing (Acute) T7-T12 level spinal cord injury (Chronic) T8 BURST FX-CORD COMPRESSION. 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 Low back pain (Acute) Weight loss, intentional (Acute) Compression fracture (Acute) 2018 Encounter for screening colonoscopy (Acute) Tubular adenoma of colon (Acute) Low back pain (Acute) Jaw clicking (Acute) Urinary urgency (Acute) Abnormal mammogram (Acute) Sternal pain (Acute) after fall while skiing Post-menopause (Acute) Compression fracture of body of thoracic vertebra (Acute) Compression fracture of lumbar vertebra (Acute) Medical History Retinal detachment 04/01/02 NOS Annual physical exam (05/09/15) Full thickness rotator cuff tear (04/14/13) supraspinatus tear by MRI 04/14/13 [id number] Surgical History History of back surgery x 2 S/P cholecystectomy Hx of appendectomy S/P tonsillectomy H/O splenectomy at age 6 mos. D/T spercytosis S/P rotator cuff repair 08/30/13 Tonsillectomy Splenomegaly AT AGE 6MO D/T SPHERCYTOSIS Rotator Cuff Repair 08/2013 Cholecystectomy BACK SURGERY Appendectomy Family History Mother Hyperlipidemia Father , 79 Prostate cancer Lung cancer Brother Substance abuse Maternal Grandfather No problems noted. Paternal Grandfather Lung cancer Maternal Grandmother , 50 +/- Breast cancer Paternal Grandmother Breast cancer Sister No problems noted. Sister No problems noted. Brother No problems noted. Brother No problems noted. Son Hereditary spherocytosis Substance abuse Daughter Hereditary spherocytosis Depression Son Hereditary spherocytosis Social History (Updated 03/03/24 @ 13:40 by Fang Peng) Smoking/Tobacco Use Status: Former Tobacco Use tobacco type: cigarettes Quit Date: 04/01/99 Tobacco: How many years used: 10 Second Hand Exposure: No Smoking risk assessment performed?: Yes Alcohol Intake: current Alcohol Intake frequency: a few times a week Alcohol type: wine Drug use: Daily Substance use type: marijuana Details: Uses for pain Adopted: No Caregiver/Support person: No Household members: none Housing: house Number of Children: 2 number of grandchildren: 1 Communication Needs: Hard of Hearing and Corrective Lenses Education Level: master's degree Do you need help understanding health information?: Never current occupation: Retired Teacher Pets and animals: No Sexually active: No Do you think of yourself as: straight/heterosexual Current gender identity: female What is your relationship status?: How often do you talk on the phone with friends or family?: three or more times per week How often do you get together with friends or relatives?: twice per week How often do you attend yarsanism or mormon services?: decline to answer Do you belong to any clubs or organized social groups?: no Panel score (0-1 are the most socially isolated patients): 1 What type of physical activity do you participate in: walking Duration: 15-30 minutes/day Frequency: 1-2 times per week Shayna/Scientology: None Special shayna needs: No Seatbelt use: always Helmet use: Yes Helmet use: always Drive intox or ride w/intox company tanker truck driver: No Do you feel safe at home: Yes Do you feel safe in your relationship?: Yes Victim of physical abuse: No Victim of emotional abuse: No Victim of sexual abuse: No Would you like helpful sources: No
--- NOTE | 2024-05-22 16:15 | DI.RAD_ITS ---
Exam(s) XR SHOULDER LT COMPLETE 2+V EXAM: XR SHOULDER LT COMPLETE 2+V CLINICAL HISTORY: L shoulder pain; s/p reverse TSA 1 yr ago. TECHNIQUE: 2D digital imaging was performed. COMPARISON: CR XR SHOULDER LT COMPLETE 2+V from 03/13/[address] SHOULDER WO CONTRAST LEFT (GENERIC) from 10/22/2023 FINDINGS: 3 views There is a left shoulder reverse prosthesis again noted. No evidence of fracture or loosening. The distance between the components of the prosthesis appears slightly more than typical but unchanged fr om outside institution CT images of 10/22/2023. Therefore this may be related to the brand of prosth esis placed. Otherwise, there is again noted a posteriorly located personally calcified osteophytic density measur ing of approximately 4 cm by 3 cm by 1 cm, this unchanged from the prior CT scan. There is no evidence of osteomyelitis. The subacromial space is not diminished. Ipsilateral clavicle and AC joint appear unremarkable. 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 However, thi s finding was also evident on the prior CT scan of 10/22/2023. 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 DATA REPOSITORY: RADIATION DOSE DELIVERED:
[2024-05-22] MEDS: LORazepam 1 MG TAB PO (17:18)
--- NOTE | 2024-05-22 18:15 | DI.RAD_ITS ---
Exam(s) XR SHOULDER LT COMP POST REDUC EXAM: XR SHOULDER LT COMP POST REDUC CLINICAL HISTORY: re-eval - portable please. TECHNIQUE: 2D digital imaging was performed. COMPARISON: CR XR SHOULDER LT COMPLETE 2+V from 05/22/2024 FINDINGS: 3 views The components of the left shoulder reverse prosthesis appear to be in satisfactory position alignmen t. No fracture or loosening evident. IMPRESSION: As above DATA REPOSITORY: RADIATION DOSE DELIVERED:
[2024-05-22 19:07] VITALS: BP 153/75; PULSE 80; RESP 12; TEMP 36.7; O2SAT 96
== END 2024-05-22 19:12 | disposition home or self-care (01) ==
LOC: ER 16:46
PROVIDERS: Emergency Provider Physician Assistant; PCP Family Medicine
DX: T84.028A Dislocation of other internal joint prosthesis, initial encounter (principal)
CPT/HCPCS: 23650; 73030; 99283

== ENCOUNTER 2024-07-20 03:25 | Outpatient (CLI) | payer MEDICARE, SELFPAY ==
[2024-07-20 12:41] LABS: ALT 52 U/L (14-59); AST 43 U/L (15-37); Albumin 4.3 g/dL (3.4-5.0); Alkaline Phosphatase 57 U/L (46-116); Anion Gap 7.6 mmol/L (3-11); BUN 18 mg/dL (7-18); Bilirubin, Total 1.5 mg/dL (0.2-1.0); CO2 27.4 mmol/L (21.0-32.0); CREATININE 0.9 mg/dL (0.55-1.02); Calcium 9.5 mg/dL (8.5-10.1); Chloride 107 mmol/L (98-107); Estimated GFR 67.92 (mL/min/1.73m2); Glucose 88 mg/dL (74-106); Potassium 4.3 mmol/L (3.5-5.1); Sodium 142 mmol/L (136-145); Total Protein 7.8 g/dL (6.4-8.2)
[2024-07-21 11:28] LABS: HBs Antibody, Quant <3.1 mIU/mL (See Note); Hep B Surface Ab Negative (See Note); Hepatitis B Core Antibody Negative (Negative); Hepatitis B Surface Antigen Negative (Negative)
[2024-07-21 11:40] LABS: Hepatitis C Ab w Rflx HCV PCR Reactive (Negative)
[2024-07-22 13:06] LABS: HCV RNA Detection Quantitative 4540000 IU/mL (Undetected); HCV RNA Qualitative Detected (Undetected)
== END 2024-07-20 03:26 | disposition home or self-care (01) ==
LOC: LOS 03:25
PROVIDERS: PCP Family Medicine; Visit Provider Family Medicine
DX: I10 Essential (primary) hypertension (principal); Z11.59 Encounter for screening for other viral diseases
CPT/HCPCS: 36415; 80053; 86704; 86706; 86803; 87340; 87522

== ENCOUNTER 2024-08-05 00:51 | Outpatient (CLI) | payer MEDICARE, SELFPAY ==
--- NOTE | 2024-08-05 06:00 | DI.US_ITS ---
Exam(s) US ABDOMEN LIMITED EXAM: US ABDOMEN LIMITED CLINICAL HISTORY: hep c positive,r76.8 TECHNIQUE: Ultrasound abdomen performed using standard protocol. COMPARISON: CT CT lumbar spine wo from 07/07/[address] pelvic wo from 07/07/[address] LUMBAR SPINE SI JOINTS WO from 05/18/2022 FINDINGS: LIVER: Normal size. Normalechogenicity. No focal liver lesions are seen.. GALLBLADDER: Cholecystectomy BILIARY SYSTEM: No intrahepatic or extrahepatic biliary ductal dilation. RIGHT KIDNEY: Normal size. No evidence of renal calculi. No evidence of hydronephrosis. No suspicious renal mass. No cyst identified. PANCREAS: Normal where visualized. ABDOMINAL AORTA AND IVC: Visualized portions normal caliber. ASCITES: None seen. IMPRESSION: Status post cholecystectomy. The liver appears normal in size and echogenicity without focal lesion. DATA REPOSITORY:
== END 2024-08-05 01:11 ==
LOC: DI 00:51
PROVIDERS: PCP Family Medicine; Visit Provider Family Medicine
DX: R76.8 Other specified abnormal immunological findings in serum (principal); Z90.49 Acquired absence of other specified parts of digestive tract
CPT/HCPCS: 76705

== ENCOUNTER 2024-08-05 02:02 | Outpatient (CLI) | payer MEDICARE, SELFPAY ==
[2024-08-05 08:28] LABS: ALT 49 U/L (14-59); AST 47 U/L (15-37); Albumin 4.1 g/dL (3.4-5.0); Alkaline Phosphatase 58 U/L (46-116); Anion Gap 6.1 mmol/L (3-11); BUN 19 mg/dL (7-18); Bilirubin, Total 1.8 mg/dL (0.2-1.0); CO2 27.9 mmol/L (21.0-32.0); CREATININE 0.7 mg/dL (0.55-1.02); Calcium 9.2 mg/dL (8.5-10.1); Chloride 105 mmol/L (98-107); Estimated GFR 91.83 (mL/min/1.73m2); Ferritin 181 ng/mL (8-252); Glucose 90 mg/dL (74-106); Potassium 4.3 mmol/L (3.5-5.1); Sodium 139 mmol/L (136-145); Total Protein 7.7 g/dL (6.4-8.2)
[2024-08-05 08:55] LABS: Iron 190 ug/dL (50-170)
[2024-08-05 20:09] LABS: CEA 1.5 ng/mL (See Note)
[2024-08-07 09:27] LABS: AFP Tumor Marker 11.4 ng/mL (<8.1)
[2024-08-09 19:21] LABS: Result Summary NEGATIVE; Specimen WB Whole Blood
== END 2024-08-05 02:03 | disposition home or self-care (01) ==
LOC: LBO 02:02
PROVIDERS: PCP Family Medicine; Visit Provider Family Medicine
DX: R76.8 Other specified abnormal immunological findings in serum (principal); I10 Essential (primary) hypertension
CPT/HCPCS: 36415; 80053; 81256; 82105; 82378; 82728; 83540

== ENCOUNTER 2024-08-19 02:54 | Outpatient (CLI) | payer MEDICARE, SELFPAY ==
[2024-08-19 11:48] LABS: HGB 17.2 g/dL (11.2-15.7); MCH 31.7 pg (27.0-33.0); MCHC 34.4 % (32.0-36.0); MCV 92 fL (80-95); MPV 11.2 fL (8.0-11.0); Platelet Count 629 10^3/uL (130-400); RBC 5.43 10^6/uL (3.93-5.22); RDW 13.4 % (11.7-14.6); RDW-SD 45.5 fL
[2024-08-19 11:59] LABS: INR 1.2 (0.9-1.1); Prothrombin Time 12.2 sec (9.1-11.1)
[2024-08-19 12:55] LABS: ALT 52 U/L (14-59); AST 48 U/L (15-37); Albumin 4.4 g/dL (3.4-5.0); Alkaline Phosphatase 61 U/L (46-116); Anion Gap 7.5 mmol/L (3-11); BUN 18 mg/dL (7-18); CO2 28.5 mmol/L (21.0-32.0); CREATININE 0.8 mg/dL (0.55-1.02); Calcium 9.8 mg/dL (8.5-10.1); Chloride 105 mmol/L (98-107); Estimated GFR 78.24 (mL/min/1.73m2); Glucose 85 mg/dL (74-106); Sodium 141 mmol/L (136-145)
[2024-08-20 12:30] LABS: Hep A Total Ab w Rflx IgM Positive (Negative)
[2024-08-20 15:36] LABS: Hep A Antibody IgM Negative (Negative)
[2024-08-21 20:21] LABS: HCV Genotype 1a (Undetected)
[2024-08-25 13:54] LABS: ALT 46 U/L (7-45); ActiTest Grade A1-A2; ActiTest Interpretation minimal activity; ActiTest Score 0.48; Alpha-2-Macroglobulin 382 mg/dL (100 - 280); Apoliprotein A1 171 mg/dL (>=140); Bilirubin, Total 1.7 mg/dL (0.0 - 1.2); FibroTest Interpretation severe fibrosis; FibroTest Score 0.93; FibroTest Stage F4; GGT 61 U/L (5 - 36); Haptoglobin <14 mg/dL (30 - 200)
== END 2024-08-19 02:55 | disposition home or self-care (01) ==
LOC: LBO 02:54
PROVIDERS: PCP Family Medicine; Visit Provider Family Medicine
DX: R76.8 Other specified abnormal immunological findings in serum (principal); D75.1 Secondary polycythemia; I10 Essential (primary) hypertension
CPT/HCPCS: 36415; 80053; 81596; 85027; 86709; 85610; 87521

== ENCOUNTER 2024-09-17 01:14 | Outpatient (CLI) | payer MEDICARE, SELFPAY ==
[2024-09-17 12:38] LABS: HCT 49.4 % (36.0-46.0); HGB 16.9 g/dL (11.2-15.7); MCH 31.1 pg (27.0-33.0); MCHC 34.2 % (32.0-36.0); MCV 91 fL (80-95); MPV 11.2 fL (8.0-11.0); Platelet Count 703 10^3/uL (130-400); RBC 5.43 10^6/uL (3.93-5.22); RDW 13.1 % (11.7-14.6); RDW-SD 43.5 fL; WBC 12.29 10^3/uL (4.4-10.8)
[2024-09-17 12:57] LABS: Absolute Basophil Count 0.37 10^3/uL (0.0-0.2); Absolute Eosinophil Count 0.37 10^3/uL (0.0-0.7); Absolute Lymphocyte Count 5.28 10^3/uL (1.2-3.4); Absolute Monocyte Count 1.47 10^3/uL (0.1-0.8); Absolute Neutrophil Count 4.79 10^3/uL (1.2-6.7); Atypical Lymphocytes % 14 %; Diff Comment Manual Differential; RBC Morphology Normal
[2024-09-17 14:21] LABS: ALT 57 U/L (14-59); AST 58 U/L (15-37); Albumin 4.5 g/dL (3.4-5.0); Alkaline Phosphatase 61 U/L (46-116); Bilirubin, Direct 0.5 mg/dL (0.0-0.2); Bilirubin, Total 1.7 mg/dL (0.2-1.0)
[2024-09-17 23:27] LABS: HIV-1/2 Ag & Ab Screen Negative (Negative)
== END 2024-09-17 01:15 | disposition home or self-care (01) ==
LOC: LBO 01:14
PROVIDERS: PCP Family Medicine; Visit Provider Nurse Practitioner Adult Health
DX: B18.2 Chronic viral hepatitis C (principal)
CPT/HCPCS: 36415; 80076; 87389; 85025; 87521

== ENCOUNTER 2025-03-23 07:13 | Outpatient (CLI) | payer MEDICARE, SELFPAY ==
[2025-03-23 20:01] LABS: Hepatitis C Ab w Rflx HCV PCR Reactive (Negative)
== END 2025-03-23 07:14 | disposition home or self-care (01) ==
LOC: LBO 07:13
PROVIDERS: PCP Family Medicine; Visit Provider Family Medicine
DX: Z11.59 Encounter for screening for other viral diseases (principal)
CPT/HCPCS: 36415; 86803; 87522

== ENCOUNTER → 2025-03-31 07:39 | Outpatient (CLI) | payer MEDICARE, SELFPAY ==
--- NOTE | 2025-03-31 05:30 | DI.MAMMO_ITS ---
Exam(s) MAMMO SCREENING EXAM: MAMMO SCREENING CLINICAL HISTORY: screening,z12.39 TECHNIQUE: Mammograms were interpreted according to the usual protocol including computer analysis with CAD system, tomosynthesis and C-view imaging. COMPARISON: 2016 through 2022 FINDINGS: The breasts are composed of scattered fibroglandular densities, Breast Density category B. No suspicious masses or suspicious microcalcifications are seen. No skin thickening or abnormal axillary lymph nodes are seen. There has been no significant change from prior exams. IMPRESSION: BI-RADS Category 1, Negative mammogram Yearly screening mammography is recommended. Breast Density - Category B - There are scattered areas of fibroglandular density. Breast density Category C or D implies that the patient has dense breast tissue. Dense breast tissue can make it harder to find cancer on a mammogram. Dense breast tissue is also associated with an increased risk of breast cancer. This information about the result of the mammogram report was provided to the patient to raise their awareness. Use this report when you speak with the patient about their risks for breast cancer, which includes their family history. At that time, you may recommend additional screening tests (Ultrasound or MRI) as these tests may add significant information. A negative radiographic report should not delay biopsy if a dominant or clinically suspicious mass is present. Up to ten percent of cancers are not identified on mammography. A negative report may reinforce clinical impression. Adenosis and dense breasts may obscure an underlying neoplasm. False positive reports average 6 to 10%. Patient will receive a letter notifying them of these results.
--- NOTE | 2025-03-31 05:30 | DI.CT_ITS ---
Exam(s) CT CHEST WO EXAM: CT CHEST WO CLINICAL HISTORY: cough,pleural thickening,r05.9,j92.9. TECHNIQUE: Imaging protocol: Axial computed tomography images were obtained and coronal and sagittal reformatted images were created and reviewed. Computer aided detection (CAD) was utilized. CONTRAST MATERIAL: Noncontrast COMPARISON: CT CT CHEST WO from 01/03/2024 FINDINGS: Pulmonary parenchyma: No consolidation. No suspicious nodules. Scarring again noted along the left major fissure. Stable tiny fissure related nodule at the right minor fissure. Interstitial changes: None. Emphysema: None. Tracheobronchial tree: No mucous plugging. No bronchiectasis . Pleura: No effusion or pneumothorax. Stable appearance calcified pleural plaques at the left posterior lung base as well as adjacent pleural thickening. No visible mass. Mild noncalcified plaque noted at the right posterior are lower lobe, unchanged. Heart: The heart is mildly dilated. The coronary arteries show minimal calcifications. Aorta: Thoracic aorta non-dilated. Mild atherosclerotic changes. Lymph nodes: No enlarged lymph nodes. Bones: Degenerative changes are seen. Old mild T3 and T5 compression fractures. Old compression fracture of the inferior endplate of T12. Old sternal fracture. Left shoulder prosthesis. Upper abdomen: Unremarkable. Soft tissues: Unremarkable. IMPRESSION: No acute abnormality. Stable pleural thickening and calcified pleural plaque at the left lung base. Stable left atelectasis along the major fissure. RADIATION DOSE DELIVERED: 235.72mGy.cm Total DLP 235.72mGy.cm Total DLP DATA REPOSITORY: All CT scans at this facility are submitted to the National Radiology Data Registry (NRDR) Dose Index Registry (DIR) with the [employer] (ACR). RADIATION OPTIMIZATION: All CT scans at this facility use at least one of these dose optimization techniques: automated exposure control; mA and/or kV adjustment per patient size (includes targeted exams where dose is matched to clinical indication); or iterative reconstruction.
== END ==
LOC: DI 07:39
PROVIDERS: PCP Family Medicine; Visit Provider Family Medicine
DX: Z12.31 Encounter for screening mammogram for malignant neoplasm of breast (principal); R05.9 Cough, unspecified; J92.9 Pleural plaque without asbestos; R92.323 Mammographic fibroglandular density, bilateral breasts
CPT/HCPCS: 71250; 77063; 77067